=== PATIENT | male | born 1955 | race Caucasian/White ===

== ENCOUNTER 2017-01-28 09:27 | Emergency (ER) | payer MEDICAID ==
[~2017-01-28] VITALS: Ht 167.6 cm; Wt 80.0 kg
[2017-01-28] MEDS ORDERED: PROPARACAINE HCL 0.5% 15 ML OPHTHALMIC SOLUTION OU ONE (11:15)
[2017-01-28] MEDS ORDERED: KETOROLAC TROMETHAMINE 60 MG/2 ML VIAL IM ONE (11:45)
[2017-01-28] MEDS ORDERED: HYDROCODONE/ACETAMINOPHEN 10-325 MG TABLET PO ONE (11:45)
[2017-01-28 13:42] VITALS: BP 141/85
== END 2017-01-28 14:22 | disposition home or self-care (01) ==
LOC: EMS 09:28
DX: H57.12 Ocular pain, left eye (principal); K21.9 Gastro-esophageal reflux disease without esophagitis; F17.210 Nicotine dependence, cigarettes, uncomplicated
CPT/HCPCS: 96372; 99283; J1885

== ENCOUNTER 2017-03-10 17:50 | Inpatient (IN) | payer MEDICAID ==
[~2017-03-10] VITALS: Ht 167.6 cm; Wt 82.8 kg
[2017-03-10] MEDS ORDERED: BP MEDS PO (17:53)
[2017-03-10] MEDS ORDERED: MORPHINE SULFATE 10 MG/ML SYRINGE IVP ONE (19:00)
[2017-03-10] MEDS ORDERED: MAGNESIUM SULFATE 2 GM, MVI, ADULT NO.1 WITH VIT K 10 ML, THIAMINE HCL 100 MG, FOLIC AC... IV ONE ×5 (19:00)
[2017-03-10] MEDS ORDERED: PROCHLORPERAZINE EDISYLATE 5 MG/ML 2 ML VIAL IVP ONE (19:00)
[2017-03-10] MEDS ORDERED: PANTOPRAZOLE SODIUM 40 MG/VIAL IVP ONE (19:15)
[2017-03-10 19:26] LABS: BASOPHILS % (AUTO) 0.8 % (0.0-2.0); EOSINOPHILS % (AUTO) 0.2 % (1.0-6.0); HEMATOCRIT 43.7 % (41-53); HEMOGLOBIN 14.1 g/dL (13.5-17.5); LYMPHOCYTES # (AUTO) 5.2 K/uL (1.0-4.8); LYMPHOCYTES % (AUTO) 27.5 % (22.0-44.0); MEAN CORPUSCULAR HEMOGLOBIN 28.6 pg (26.0-34.0); MEAN CORPUSCULAR HGB CONC 32.2 G/dL (31.0-37.0); MEAN CORPUSCULAR VOLUME 89 fL (80-100); MONOCYTES # (AUTO) 1.6 K/uL (0.1-1.0); MONOCYTES % (AUTO) 8.5 % (2.0-9.0); PLATELET COUNT (AUTO) 283 K/uL (150-450); RED BLOOD CELL COUNT(AUTO) 4.91 MIL/uL (4.50-5.90); RED CELL DISTRIBUTION WIDTH 14.8 % (11.5-14.5)
[2017-03-10 19:40] LABS: ALANINE AMINOTRANSFERASE 28 U/L (12-78); ALBUMIN 3.7 g/dL (3.4-5.0); ANION GAP 11 mmol/L (8-16); ASPARTATE AMINOTRANSFERASE 28 U/L (15-37); BILIRUBIN,TOTAL 0.7 mg/dL (0.1-1.0); CALCIUM, TOTAL 8.7 mg/dL (8.8-10.5); CARBON DIOXIDE 22 mmol/L (22-29); CHLORIDE 96 mmol/L (98-107); CREATININE 0.85 mg/dL (0.60-1.30); GLOMERULAR FILTR. RATE CALC > 60 mL/min (>60); POTASSIUM 3.9 mmol/L (3.5-5.1); SODIUM SERUM 129 mmol/L (136-145); TOTAL PROTEIN, SERUM 8.2 g/dL (6.4-8.2)
[2017-03-10 19:50] LABS: UREA NITROGEN, BLOOD 6 mg/dL (7-18)
[2017-03-10 19:58] LABS: APPEARANCE,URINE CLEAR (CLEAR); GLUCOSE, URINE (UA) NEGATIVE (NEGATIVE); KETONES,URINE NEGATIVE (NEGATIVE); LEUKOCYTE ESTERASE ,URINE NEGATIVE (NEGATIVE); OCCULT BLOOD,URINE NEGATIVE (NEGATIVE); PROTEIN,URINE NEGATIVE (NEGATIVE)
[2017-03-10 20:17] LABS: RBC,URINE 0-2 /HPF (0-2); SQUAMOUS EPITHELIAL CELL,UR Rare /LPF (None Seen); WBC,URINE 0-2 /HPF (0-5)
[2017-03-10] MEDS ORDERED: IOVERSOL 350 MG/ML 100 ML VIAL ONE (21:07)
[2017-03-10] MEDS ORDERED: ONDANSETRON HCL 4 MG/2 ML VIAL IVP PRN (21:15)
[2017-03-10] MEDS ORDERED: ALBUTEROL SULFATE 2.5 MG/0.5 ML NEB SOLUTION NEB PRN (21:15)
[2017-03-10] MEDS ORDERED: ACETAMINOPHEN 325 MG TABLET PO PRN (21:15)
[2017-03-10] MEDS ORDERED: MAGNESIUM HYDROXIDE SUSPENSION 30 ML UDCUP PO PRN (21:15)
[2017-03-10] MEDS ORDERED: OxyCODONE HCL/ACETAMINOPHEN 5-325 MG TABLET PO PRN (21:15)
[2017-03-10] MEDS ORDERED: MAGNESIUM SULFATE 2 GM in DEXTROSE 5%-WATER 50 ML IV PRN (21:30)
[2017-03-10] MEDS ORDERED: MAGNESIUM SULFATE 4 GM/WATER 100 ML IV PRN (21:30)
[2017-03-10] MEDS ORDERED: SODIUM CHLORIDE 0.9% 1,000 ML IV ONE (21:30)
[2017-03-10] MEDS ORDERED: MAGNESIUM OXIDE 400 MG TABLET PO PRN (21:30)
[2017-03-10] MEDS ORDERED: POTASSIUM CHLORIDE 20 MEQ ER TABLET PO PRN (21:30)
[2017-03-10] MEDS ORDERED: POTASSIUM CHL 10 MEQ/WATER 50 ML IV PRN (21:30)
[2017-03-10] MEDS: MORPHINE SULFATE 2 MG/ML SYRINGE IVP PRN (23:54)
[2017-03-11] VITALS (7 sets, daily range): BP systolic 105–118; BP diastolic 59–88
[2017-03-11] MEDS: MORPHINE SULFATE 2 MG/ML SYRINGE IVP PRN ×5 (04:23→22:26)
[2017-03-11 06:06] LABS: BASOPHILS % (AUTO) 0.3 % (0.0-2.0); EOSINOPHILS % (AUTO) 0.8 % (1.0-6.0); HEMATOCRIT 37.7 % (41-53); HEMOGLOBIN 12.1 g/dL (13.5-17.5); LYMPHOCYTES # (AUTO) 3.4 K/uL (1.0-4.8); LYMPHOCYTES % (AUTO) 34.3 % (22.0-44.0); MEAN CORPUSCULAR HEMOGLOBIN 29.1 pg (26.0-34.0); MEAN CORPUSCULAR HGB CONC 32.1 G/dL (31.0-37.0); MEAN CORPUSCULAR VOLUME 91 fL (80-100); MONOCYTES # (AUTO) 1.2 K/uL (0.1-1.0); MONOCYTES % (AUTO) 11.9 % (2.0-9.0); NEUTROPHILS # (AUTO) 5.2 K/uL (1.8-7.7); NEUTROPHILS % (AUTO) 52.7 % (40.0-70.0); PLATELET COUNT (AUTO) 232 K/uL (150-450); RED BLOOD CELL COUNT(AUTO) 4.15 MIL/uL (4.50-5.90); RED CELL DISTRIBUTION WIDTH 14.7 % (11.5-14.5); WHITE BLOOD COUNT (AUTO) 9.9 K/uL (4.5-11.0)
[2017-03-11 06:29] LABS: ALANINE AMINOTRANSFERASE 25 U/L (12-78); ALBUMIN 2.9 g/dL (3.4-5.0); ANION GAP 7 mmol/L (8-16); ASPARTATE AMINOTRANSFERASE 21 U/L (15-37); BILIRUBIN,TOTAL 0.8 mg/dL (0.1-1.0); CALCIUM, TOTAL 7.9 mg/dL (8.8-10.5); CARBON DIOXIDE 24 mmol/L (22-29); CHLORIDE 101 mmol/L (98-107); CREATININE 0.79 mg/dL (0.60-1.30); GLOMERULAR FILTR. RATE CALC > 60 mL/min (>60); POTASSIUM 3.7 mmol/L (3.5-5.1); SODIUM SERUM 132 mmol/L (136-145); TOTAL PROTEIN, SERUM 6.7 g/dL (6.4-8.2); UREA NITROGEN, BLOOD 8 mg/dL (7-18)
[2017-03-11] MEDS ORDERED: SODIUM CHLORIDE 0.9% 1,000 ML IV ONE (08:15)
[2017-03-11] MEDS: PANTOPRAZOLE SODIUM 40 MG/VIAL IVP SCH (08:30)
[2017-03-11] MEDS: DOCUSATE SODIUM 100 MG CAPSULE PO SCH ×2 (08:30→21:00)
[2017-03-11] MEDS: MULTIVITAMINS WITH MINERALS, THERAPEUTIC TABLET PO SCH (08:34)
[2017-03-11] MEDS: LORazepam 2 MG/ML VIAL IVP PRN ×2 (18:23→22:25)
[2017-03-11] MEDS ORDERED: 0.9% SODIUM CHLORIDE 10 ML SYRINGE IVP PRN (19:15)
[2017-03-12] MEDS: LORazepam 2 MG/ML VIAL IVP PRN ×2 (03:36→07:47)
[2017-03-12] MEDS: MORPHINE SULFATE 2 MG/ML SYRINGE IVP PRN ×2 (03:36→07:47)
[2017-03-12 04:53] VITALS: BP 122/85
[2017-03-12] MEDS: PANTOPRAZOLE SODIUM 40 MG/VIAL IVP SCH (07:46)
[2017-03-12] MEDS: DOCUSATE SODIUM 100 MG CAPSULE PO SCH (07:46)
[2017-03-12] MEDS: MULTIVITAMINS WITH MINERALS, THERAPEUTIC TABLET PO SCH (07:46)
[2017-03-12 07:48] VITALS: BP 109/64
[2017-03-12 11:35] VITALS: BP 125/86
== END 2017-03-12 15:20 | disposition home or self-care (01) | DRG 282 ==
LOC: EMS 17:52 → 6N 22:20
PROVIDERS: ADMIT Internal Medicine; ATTEND Internal Medicine
DX: K85.90 Acute pancreatitis without necrosis or infection, unspecified (principal); E87.1 Hypo-osmolality and hyponatremia; K86.1 Other chronic pancreatitis; F10.20 Alcohol dependence, uncomplicated; K21.9 Gastro-esophageal reflux disease without esophagitis; K86.3 Pseudocyst of pancreas; G89.29 Other chronic pain; D72.829 Elevated white blood cell count, unspecified; F17.210 Nicotine dependence, cigarettes, uncomplicated; Z71.6 Tobacco abuse counseling; Z91.19 Patient's noncompliance with other medical treatment and regimen; Z82.5 Family history of asthma and other chronic lower respiratory diseases; Z59.0 Homelessness; Z79.899 Other long term (current) drug therapy
CPT/HCPCS: 74177; 83735; 96365; 96366; 96375; 99285; C9113; G0480; J0780; J2060; J2270; J3411; J3475; J3490; J7030

== ENCOUNTER 2017-03-14 17:54 | Emergency (ER) | payer MEDICAID ==
[~2017-03-14] VITALS: Ht 167.6 cm; Wt 79.5 kg
[2017-03-14 19:23] LABS: BASOPHILS % (AUTO) 0.6 % (0.0-2.0); EOSINOPHILS % (AUTO) 2.3 % (1.0-6.0); HEMATOCRIT 43.9 % (41-53); HEMOGLOBIN 14.4 g/dL (13.5-17.5); LYMPHOCYTES # (AUTO) 4.8 K/uL (1.0-4.8); MEAN CORPUSCULAR HEMOGLOBIN 29.8 pg (26.0-34.0); MEAN CORPUSCULAR HGB CONC 32.8 G/dL (31.0-37.0); MEAN CORPUSCULAR VOLUME 91 fL (80-100); MONOCYTES % (AUTO) 9.4 % (2.0-9.0); NEUTROPHILS # (AUTO) 4.8 K/uL (1.8-7.7); NEUTROPHILS % (AUTO) 43.7 % (40.0-70.0); PLATELET COUNT (AUTO) 318 K/uL (150-450); RED BLOOD CELL COUNT(AUTO) 4.83 MIL/uL (4.50-5.90); RED CELL DISTRIBUTION WIDTH 14.8 % (11.5-14.5); WHITE BLOOD COUNT (AUTO) 10.9 K/uL (4.5-11.0)
[2017-03-14 19:39] LABS: ANION GAP 10 mmol/L (8-16); CALCIUM, TOTAL 9.1 mg/dL (8.8-10.5); CARBON DIOXIDE 24 mmol/L (22-29); CHLORIDE 101 mmol/L (98-107); CREATININE 0.76 mg/dL (0.60-1.30); GLOMERULAR FILTR. RATE CALC > 60 mL/min (>60); POTASSIUM 3.7 mmol/L (3.5-5.1); SODIUM SERUM 135 mmol/L (136-145); UREA NITROGEN, BLOOD 7 mg/dL (7-18)
[2017-03-14 19:45] LABS: ALANINE AMINOTRANSFERASE 29 U/L (12-78); ALBUMIN 3.3 g/dL (3.4-5.0); ASPARTATE AMINOTRANSFERASE 31 U/L (15-37); BILIRUBIN,TOTAL 0.2 mg/dL (0.1-1.0); TOTAL PROTEIN, SERUM 8.3 g/dL (6.4-8.2)
[2017-03-14] MEDS ORDERED: ONDANSETRON HCL 4 MG/2 ML VIAL IVP ONE (20:45)
[2017-03-14] MEDS ORDERED: LORazepam 2 MG/ML VIAL IVP ONE ×2 (20:45→21:45)
[2017-03-14] MEDS ORDERED: SODIUM CHLORIDE 0.9% 1,000 ML IV ONE (20:45)
[2017-03-14] MEDS ORDERED: HYDROmorphone 2 MG/ML SYRINGE IVP ONE ×2 (20:45→21:45)
[2017-03-14 20:51] LABS: ADD UA MICROSCOPIC NO; APPEARANCE,URINE CLEAR (CLEAR); GLUCOSE, URINE (UA) NEGATIVE (NEGATIVE); KETONES,URINE NEGATIVE (NEGATIVE); LEUKOCYTE ESTERASE ,URINE NEGATIVE (NEGATIVE); OCCULT BLOOD,URINE NEGATIVE (NEGATIVE); PROTEIN,URINE NEGATIVE (NEGATIVE)
[2017-03-14 22:36] VITALS: BP 126/86
== END 2017-03-14 22:38 | disposition home or self-care (01) ==
LOC: EMS 17:55
DX: R10.13 Epigastric pain (principal); F10.20 Alcohol dependence, uncomplicated; K21.9 Gastro-esophageal reflux disease without esophagitis; F17.210 Nicotine dependence, cigarettes, uncomplicated; F12.90 Cannabis use, unspecified, uncomplicated; Y90.1 Blood alcohol level of 20-39 mg/100 ml
CPT/HCPCS: 36415; 80053; 80307; 81003; 83690; 84484; 85025; 93005; 96361; 96374; 96375; 96376; 99285; G0480; J1170; J2060; J2405; J7030

== ENCOUNTER 2017-05-06 22:09 | Emergency (ER) | payer MEDICAID ==
[~2017-05-06] VITALS: Ht 167.6 cm; Wt 81.8 kg
[2017-05-06] MEDS ORDERED: AMIT10TA6 PO (22:21)
[2017-05-06 22:43] LABS: EOSINOPHILS % (AUTO) 1.3 % (1.0-6.0); HEMATOCRIT 40.8 % (41-53); HEMOGLOBIN 13.9 g/dL (13.5-17.5); LYMPHOCYTES # (AUTO) 5.3 K/uL (1.0-4.8); LYMPHOCYTES % (AUTO) 51.2 % (22.0-44.0); MEAN CORPUSCULAR VOLUME 88 fL (80-100); MONOCYTES # (AUTO) 1.1 K/uL (0.1-1.0); MONOCYTES % (AUTO) 10.8 % (2.0-9.0); NEUTROPHILS # (AUTO) 3.7 K/uL (1.8-7.7); NEUTROPHILS % (AUTO) 35.7 % (40.0-70.0); PLATELET COUNT (AUTO) 378 K/uL (150-450); RED BLOOD CELL COUNT(AUTO) 4.62 MIL/uL (4.50-5.90); RED CELL DISTRIBUTION WIDTH 15.8 % (11.5-14.5); WHITE BLOOD COUNT (AUTO) 10.3 K/uL (4.5-11.0)
[2017-05-06 22:53] LABS: ANION GAP 11 mmol/L (8-16); CALCIUM, TOTAL 8.6 mg/dL (8.8-10.5); CARBON DIOXIDE 26 mmol/L (22-29); CHLORIDE 101 mmol/L (98-107); GLOMERULAR FILTR. RATE CALC > 60 mL/min (>60); POTASSIUM 3.6 mmol/L (3.5-5.1); SODIUM SERUM 138 mmol/L (136-145); UREA NITROGEN, BLOOD 2 mg/dL (7-18)
[2017-05-06 23:01] LABS: ALANINE AMINOTRANSFERASE 25 U/L (12-78); ASPARTATE AMINOTRANSFERASE 35 U/L (15-37); BILIRUBIN,TOTAL 0.2 mg/dL (0.1-1.0); TOTAL PROTEIN, SERUM 7.9 g/dL (6.4-8.2)
[2017-05-06] MEDS ORDERED: ONDANSETRON HCL 4 MG/2 ML VIAL IVP ONE (23:15)
[2017-05-06 23:53] LABS: APPEARANCE,URINE CLEAR (CLEAR); GLUCOSE, URINE (UA) NEGATIVE (NEGATIVE); KETONES,URINE NEGATIVE (NEGATIVE); LEUKOCYTE ESTERASE ,URINE NEGATIVE (NEGATIVE); OCCULT BLOOD,URINE NEGATIVE (NEGATIVE); PROTEIN,URINE NEGATIVE (NEGATIVE)
[2017-05-06 23:57] LABS: ADD UA MICROSCOPIC NO
[2017-05-07] MEDS ORDERED: SODIUM CHLORIDE 0.9% 1,000 ML IV ONE (02:15)
[2017-05-07 03:27] VITALS: BP 110/65
== END 2017-05-07 03:38 | disposition home or self-care (01) ==
LOC: EMS 22:12
DX: F10.229 Alcohol dependence with intoxication, unspecified (principal); R10.84 Generalized abdominal pain; F17.210 Nicotine dependence, cigarettes, uncomplicated; K21.9 Gastro-esophageal reflux disease without esophagitis; G89.29 Other chronic pain; B19.20 Unspecified viral hepatitis C without hepatic coma; F12.10 Cannabis abuse, uncomplicated
CPT/HCPCS: 36415; 80053; 80307; 81003; 83690; 84484; 85025; 93005; 96361; 96374; 99285; 99406; G0480; J2405; J7030

== ENCOUNTER 2017-09-23 08:31 | Inpatient (IN) | payer MEDICAID ==
[~2017-09-23] VITALS: Ht 167.6 cm; Wt 81.8 kg
[~2017-09-23 08:31] MED LIST: AMIT10TA6 PO
[2017-09-23 09:11] LABS: BASOPHILS % (AUTO) 0.4 % (0.0-2.0); EOSINOPHILS % (AUTO) 0.7 % (1.0-6.0); HEMATOCRIT 40.7 % (41-53); HEMOGLOBIN 13.4 g/dL (13.5-17.5); LYMPHOCYTES # (AUTO) 3.9 K/uL (1.0-4.8); LYMPHOCYTES % (AUTO) 36.3 % (22.0-44.0); MEAN CORPUSCULAR HEMOGLOBIN 27.4 pg (26.0-34.0); MEAN CORPUSCULAR VOLUME 83 fL (80-100); MONOCYTES % (AUTO) 9.3 % (2.0-9.0); NEUTROPHILS # (AUTO) 5.7 K/uL (1.8-7.7); NEUTROPHILS % (AUTO) 53.3 % (40.0-70.0); PLATELET COUNT (AUTO) 351 K/uL (150-450); RED CELL DISTRIBUTION WIDTH 19.4 % (11.5-14.5)
[2017-09-23 09:23] LABS: ANION GAP 12 mmol/L (8-16); CALCIUM, TOTAL 9.3 mg/dL (8.8-10.5); CARBON DIOXIDE 23 mmol/L (22-29); CHLORIDE 98 mmol/L (98-107); CREATININE 0.86 mg/dL (0.60-1.30); GLOMERULAR FILTR. RATE CALC > 60 mL/min (>60); GLUCOSE,RANDOM 129 mg/dL (70-110); SODIUM SERUM 133 mmol/L (136-145); UREA NITROGEN, BLOOD 15 mg/dL (7-18)
[2017-09-23 09:32] LABS: ALANINE AMINOTRANSFERASE 19 U/L (12-78); ALBUMIN 3.9 g/dL (3.4-5.0); ALKALINE PHOSPHATASE 150 U/L (46-116); ASPARTATE AMINOTRANSFERASE 28 U/L (15-37); BILIRUBIN,TOTAL 0.3 mg/dL (0.1-1.0); LIPASE 605 U/L (73-393)
[2017-09-23] MEDS ORDERED: OxyCODONE HCL/ACETAMINOPHEN 5-325 MG TABLET PO ONE (10:30)
[2017-09-23] MEDS ORDERED: SODIUM CHLORIDE 0.9% 1,000 ML IV ONE (10:30)
[2017-09-23] MEDS ORDERED: ONDANSETRON HCL 4 MG/2 ML VIAL IVP ONE ×2 (10:30→14:45)
[2017-09-23] MEDS ORDERED: HYDROmorphone 2 MG/ML SYRINGE IVP ONE ×2 (11:45→14:45)
[2017-09-23] MEDS ORDERED: MORPHINE SULFATE 4 MG/ML SYRINGE IVP ONE ×2 (12:15→16:30)
[2017-09-23] MEDS ORDERED: ONDANSETRON HCL 4 MG/2 ML VIAL IVP PRN (13:00)
[2017-09-23] MEDS ORDERED: ACETAMINOPHEN 325 MG TABLET PO PRN (13:00)
[2017-09-23] MEDS ORDERED: 0.9% SODIUM CHLORIDE 10 ML SYRINGE IVP PRN (13:00)
[2017-09-23] MEDS ORDERED: HydrALAZINE HCL 20 MG/ML VIAL IVP ONE ×2 (15:00→16:30)
[2017-09-23 15:10] LABS: APPEARANCE,URINE CLEAR (CLEAR); BILIRUBIN,URINE NEGATIVE (NEGATIVE); GLUCOSE, URINE (UA) 100 mg/dL (NEGATIVE); KETONES,URINE 15 mg/dL (NEGATIVE); LEUKOCYTE ESTERASE ,URINE NEGATIVE (NEGATIVE); NITRATE,URINE NEGATIVE (NEGATIVE); OCCULT BLOOD,URINE SMALL (NEGATIVE); PH,URINE 6.5 (5.0-8.0); PROTEIN,URINE TRACE (NEGATIVE); UROBILINOGEN,URINE 0.2 mg/dL (<=1.0)
[2017-09-23 15:30] LABS: BACTERIA,URINE None Seen /HPF (None Seen); RBC,URINE 0-2 /HPF (0-2); SQUAMOUS EPITHELIAL CELL,UR Few /LPF (None Seen); WBC,URINE None Seen /HPF (0-5)
[2017-09-23] MEDS ORDERED: KETOROLAC TROMETHAMINE 30 MG/ML VIAL IVP ONE (16:30)
[2017-09-23] MEDS: HYDROmorphone 2 MG/ML SYRINGE IVP PRN ×2 (18:06→22:08)
[2017-09-23] MEDS ORDERED: MAGNESIUM SULFATE 2 GM, MVI, ADULT NO.1 WITH VIT K 10 ML, THIAMINE HCL 100 MG, FOLIC AC... IV ONE ×5 (20:00)
[2017-09-23 20:08] VITALS: BP 142/81
[2017-09-23] MEDS ORDERED: LORazepam 2 MG/ML VIAL IM PRN (20:15)
[2017-09-23] MEDS: ChlordiazePOXIDE HCL 25 MG CAPSULE PO SCH (20:51)
[2017-09-23] MEDS: MORPHINE SULFATE 2 MG/ML SYRINGE IVP PRN (20:51)
[2017-09-23] MEDS: PANTOPRAZOLE SODIUM 40 MG/VIAL IVP SCH (22:04)
[2017-09-24] VITALS (8 sets, daily range): BP systolic 154–191; BP diastolic 82–121
[2017-09-24] MEDS: MORPHINE SULFATE 2 MG/ML SYRINGE IVP PRN ×5 (01:10→20:03)
[2017-09-24] MEDS: HYDROmorphone 2 MG/ML SYRINGE IVP PRN ×6 (02:02→17:21)
[2017-09-24] MEDS: LORazepam 2 MG/ML VIAL IVP PRN ×2 (03:48→21:04)
[2017-09-24] MEDS ORDERED: BARIUM SULFATE 0.1% SUSPENSION 450 ML BOTTLE ONE ×2 (04:05)
[2017-09-24] MEDS: DEXTROSE 5%-0.45% SODIUM CHL 1,000 ML IV SCH ×3 (04:59→20:04)
[2017-09-24 05:45] LABS: BASOPHILS % (AUTO) 0.3 % (0.0-2.0); EOSINOPHILS % (AUTO) 0.4 % (1.0-6.0); HEMATOCRIT 40.3 % (41-53); HEMOGLOBIN 13.3 g/dL (13.5-17.5); LYMPHOCYTES # (AUTO) 1.9 K/uL (1.0-4.8); LYMPHOCYTES % (AUTO) 19.3 % (22.0-44.0); MEAN CORPUSCULAR HEMOGLOBIN 27.4 pg (26.0-34.0); MEAN CORPUSCULAR HGB CONC 32.9 G/dL (31.0-37.0); MEAN CORPUSCULAR VOLUME 83 fL (80-100); MONOCYTES % (AUTO) 10.2 % (2.0-9.0); NEUTROPHILS # (AUTO) 6.8 K/uL (1.8-7.7); NEUTROPHILS % (AUTO) 69.8 % (40.0-70.0); PLATELET COUNT (AUTO) 307 K/uL (150-450); RED BLOOD CELL COUNT(AUTO) 4.86 MIL/uL (4.50-5.90)
[2017-09-24 06:04] LABS: ALANINE AMINOTRANSFERASE 19 U/L (12-78); ALBUMIN 3.7 g/dL (3.4-5.0); ALKALINE PHOSPHATASE 140 U/L (46-116); AMYLASE 98 U/L (25-115); ANION GAP 10 mmol/L (8-16); ASPARTATE AMINOTRANSFERASE 25 U/L (15-37); BILIRUBIN,TOTAL 0.4 mg/dL (0.1-1.0); CARBON DIOXIDE 24 mmol/L (22-29); CHLORIDE 96 mmol/L (98-107); CREATININE 0.68 mg/dL (0.60-1.30); GLOMERULAR FILTR. RATE CALC > 60 mL/min (>60); GLUCOSE,RANDOM 120 mg/dL (70-110); LIPASE 541 U/L (73-393); POTASSIUM 3.9 mmol/L (3.5-5.1); SODIUM SERUM 130 mmol/L (136-145); TOTAL PROTEIN, SERUM 8.6 g/dL (6.4-8.2); UREA NITROGEN, BLOOD 11 mg/dL (7-18)
[2017-09-24] MEDS ORDERED: IOVERSOL 350 MG/ML 150 ML VIAL ONE (07:44)
[2017-09-24] MEDS: ChlordiazePOXIDE HCL 25 MG CAPSULE PO SCH ×4 (08:04→20:03)
[2017-09-24] MEDS: PANTOPRAZOLE SODIUM 40 MG/VIAL IVP SCH ×2 (08:07→20:03)
[2017-09-24] MEDS: HydrALAZINE HCL 10 MG TABLET PO PRN ×3 (08:33→21:04)
[2017-09-25 00:14] VITALS: BP 160/95
[2017-09-25] MEDS: MORPHINE SULFATE 2 MG/ML SYRINGE IVP PRN (01:19)
[2017-09-25 06:00] VITALS: BP 156/101
[2017-09-25] MEDS: DEXTROSE 5%-0.45% SODIUM CHL 1,000 ML IV SCH ×3 (06:27→23:21)
[2017-09-25] MEDS: MORPHINE SULFATE 2 MG/ML SYRINGE IM PRN ×2 (07:12→12:08)
[2017-09-25 07:58] VITALS: BP 123/82
[2017-09-25] MEDS: ChlordiazePOXIDE HCL 25 MG CAPSULE PO SCH ×3 (08:13→20:33)
[2017-09-25] MEDS: PANTOPRAZOLE SODIUM 40 MG/VIAL IVP SCH ×3 (08:13→20:32)
[2017-09-25] MEDS ORDERED: MORPHINE SULFATE 2 MG/ML SYRINGE IM PRN (08:15)
[2017-09-25 09:22] LABS: INR 1.1 (0.9-1.1); PROTHROMBIN TIME 11.1 SEC (9.4-11.6)
[2017-09-25 16:22] VITALS: BP 154/88
[2017-09-25] MEDS: HYDROmorphone 2 MG/ML SYRINGE IVP PRN (16:42)
[2017-09-25 20:37] VITALS: BP 118/89
[2017-09-26 06:00] VITALS: BP 123/79
[2017-09-26] MEDS: DEXTROSE 5%-0.45% SODIUM CHL 1,000 ML IV SCH (06:01)
[2017-09-26] MEDS: HYDROmorphone 2 MG/ML SYRINGE IVP PRN ×5 (06:02→21:35)
[2017-09-26 07:28] VITALS: BP 108/70
[2017-09-26] MEDS: ChlordiazePOXIDE HCL 25 MG CAPSULE PO SCH ×2 (07:53→20:19)
[2017-09-26] MEDS: PANTOPRAZOLE SODIUM 40 MG/VIAL IVP SCH ×2 (07:53→20:19)
[2017-09-26 08:17] LABS: BASOPHILS % (AUTO) 0.8 % (0.0-2.0); EOSINOPHILS % (AUTO) 0.3 % (1.0-6.0); HEMATOCRIT 36.6 % (41-53); HEMOGLOBIN 12.1 g/dL (13.5-17.5); LYMPHOCYTES # (AUTO) 2.7 K/uL (1.0-4.8); LYMPHOCYTES % (AUTO) 33.1 % (22.0-44.0); MEAN CORPUSCULAR HEMOGLOBIN 27.4 pg (26.0-34.0); MEAN CORPUSCULAR VOLUME 83 fL (80-100); MONOCYTES % (AUTO) 11.9 % (2.0-9.0); NEUTROPHILS # (AUTO) 4.4 K/uL (1.8-7.7); NEUTROPHILS % (AUTO) 53.9 % (40.0-70.0); PLATELET COUNT (AUTO) 265 K/uL (150-450); RED BLOOD CELL COUNT(AUTO) 4.41 MIL/uL (4.50-5.90); RED CELL DISTRIBUTION WIDTH 18.6 % (11.5-14.5)
[2017-09-26 08:22] LABS: ANION GAP 7 mmol/L (8-16); CALCIUM, TOTAL 8.8 mg/dL (8.8-10.5); CARBON DIOXIDE 29 mmol/L (22-29); CHLORIDE 94 mmol/L (98-107); CREATININE 0.88 mg/dL (0.60-1.30); GLOMERULAR FILTR. RATE CALC > 60 mL/min (>60); GLUCOSE,RANDOM 155 mg/dL (70-110); POTASSIUM 3.8 mmol/L (3.5-5.1); SODIUM SERUM 130 mmol/L (136-145); UREA NITROGEN, BLOOD 9 mg/dL (7-18)
[2017-09-26 11:25] VITALS: BP 108/66
[2017-09-26] MEDS: MORPHINE SULFATE 2 MG/ML SYRINGE IVP PRN ×2 (14:30→20:19)
[2017-09-26 15:22] VITALS: BP 106/75
[2017-09-26 19:21] VITALS: BP 101/69
[2017-09-26 23:27] VITALS: BP 102/72
[2017-09-27 05:13] VITALS: BP 110/80
[2017-09-27 07:34] VITALS: BP 122/77
[2017-09-27] MEDS: HYDROmorphone 2 MG/ML SYRINGE IVP PRN ×3 (08:39→19:00)
[2017-09-27] MEDS: PANTOPRAZOLE SODIUM 40 MG/VIAL IVP SCH ×2 (08:39→20:00)
[2017-09-27] MEDS: ChlordiazePOXIDE HCL 25 MG CAPSULE PO SCH ×2 (08:39→20:00)
[2017-09-27] MEDS: MORPHINE SULFATE 2 MG/ML SYRINGE IVP PRN ×3 (10:06→20:01)
[2017-09-27 11:34] VITALS: BP 135/87
[2017-09-27 15:28] VITALS: BP 123/76
[2017-09-27 20:08] VITALS: BP 111/80
[2017-09-27 23:52] VITALS: BP 101/68
[2017-09-28] MEDS: HYDROmorphone 2 MG/ML SYRINGE IVP PRN ×2 (01:02→18:08)
[2017-09-28 04:30] VITALS: BP 112/74
[2017-09-28 07:59] VITALS: BP 108/66
[2017-09-28] MEDS: PANTOPRAZOLE SODIUM 40 MG/VIAL IVP SCH ×2 (08:56→21:11)
[2017-09-28] MEDS: ChlordiazePOXIDE HCL 25 MG CAPSULE PO SCH ×2 (08:57→21:12)
[2017-09-28] MEDS: MORPHINE SULFATE 2 MG/ML SYRINGE IVP PRN ×3 (10:13→21:12)
[2017-09-28 12:44] VITALS: BP 112/71
[2017-09-28 16:02] VITALS: BP 148/90
[2017-09-28] MEDS: LORazepam 2 MG/ML VIAL IVP PRN (18:19)
[2017-09-28 19:33] VITALS: BP 121/85
[2017-09-29] VITALS (7 sets, daily range): BP systolic 111–141; BP diastolic 72–89
[2017-09-29] MEDS: ChlordiazePOXIDE HCL 25 MG CAPSULE PO SCH ×2 (08:31→20:16)
[2017-09-29] MEDS: PANTOPRAZOLE SODIUM 40 MG/VIAL IVP SCH ×2 (08:31→20:16)
[2017-09-29] MEDS: HYDROmorphone 2 MG/ML SYRINGE IVP PRN ×4 (08:31→23:09)
[2017-09-29] MEDS: MORPHINE SULFATE 2 MG/ML SYRINGE IVP PRN (12:37)
[2017-09-30 05:01] VITALS: BP 131/76
[2017-09-30] MEDS: HYDROmorphone 2 MG/ML SYRINGE IVP PRN ×4 (05:12→20:18)
[2017-09-30 07:17] VITALS: BP 117/85
[2017-09-30] MEDS: ChlordiazePOXIDE HCL 25 MG CAPSULE PO SCH ×2 (08:42→20:18)
[2017-09-30] MEDS: PANTOPRAZOLE SODIUM 40 MG/VIAL IVP SCH ×2 (08:42→20:19)
[2017-09-30 11:39] VITALS: BP 111/75
[2017-09-30 15:49] VITALS: BP 138/87
[2017-09-30] MEDS: MORPHINE SULFATE 2 MG/ML SYRINGE IVP PRN ×2 (17:34→23:47)
[2017-09-30 19:30] VITALS: BP 107/66
[2017-09-30 23:30] VITALS: BP 101/63
[2017-10-01 04:49] VITALS: BP 121/73
[2017-10-01] MEDS: HYDROmorphone 2 MG/ML SYRINGE IVP PRN ×4 (06:49→21:43)
[2017-10-01 07:45] VITALS: BP 112/75
[2017-10-01] MEDS: ChlordiazePOXIDE HCL 25 MG CAPSULE PO SCH ×2 (09:14→19:45)
[2017-10-01] MEDS: PANTOPRAZOLE SODIUM 40 MG/VIAL IVP SCH ×2 (09:15→19:45)
[2017-10-01] MEDS: MORPHINE SULFATE 2 MG/ML SYRINGE IVP PRN ×4 (09:20→23:45)
[2017-10-01 11:34] VITALS: BP 132/88
[2017-10-01] MEDS ORDERED: BARIUM SULFATE 0.1% SUSPENSION 450 ML BOTTLE ONE (13:32)
[2017-10-01] MEDS ORDERED: IOVERSOL 350 MG/ML 100 ML VIAL ONE (13:32)
[2017-10-01 15:12] VITALS: BP 117/71
[2017-10-01 20:23] VITALS: BP 114/78
[2017-10-02] VITALS (8 sets, daily range): BP systolic 106–138; BP diastolic 60–99
[2017-10-02] MEDS: HYDROmorphone 2 MG/ML SYRINGE IVP PRN ×7 (00:46→22:44)
[2017-10-02 06:27] LABS: BASOPHILS # (AUTO) 0.03 K/uL (0.00-0.20); BASOPHILS % (AUTO) 0.4 % (0.0-2.0); EOSINOPHILS # (AUTO) 0.18 K/uL (0.00-0.70); HEMATOCRIT 36.2 % (41-53); HEMOGLOBIN 11.4 g/dL (13.5-17.5); LYMPHOCYTES # (AUTO) 2.2 K/uL (1.0-4.8); LYMPHOCYTES % (AUTO) 31.3 % (22.0-44.0); MEAN CORPUSCULAR HEMOGLOBIN 26.8 pg (26.0-34.0); MEAN CORPUSCULAR HGB CONC 31.6 G/dL (31.0-37.0); MEAN CORPUSCULAR VOLUME 85 fL (80-100); MONOCYTES # (AUTO) 0.6 K/uL (0.1-1.0); MONOCYTES % (AUTO) 8.3 % (2.0-9.0); NEUTROPHILS # (AUTO) 3.9 K/uL (1.8-7.7); NEUTROPHILS % (AUTO) 57.4 % (40.0-70.0); PLATELET COUNT (AUTO) 367 K/uL (150-450); RED BLOOD CELL COUNT(AUTO) 4.27 MIL/uL (4.50-5.90); RED CELL DISTRIBUTION WIDTH 17.9 % (11.5-14.5)
[2017-10-02] MEDS: MORPHINE SULFATE 2 MG/ML SYRINGE IVP PRN (06:33)
[2017-10-02 06:50] LABS: ANION GAP 6 mmol/L (8-16); CALCIUM, TOTAL 9.2 mg/dL (8.8-10.5); CARBON DIOXIDE 29 mmol/L (22-29); CHLORIDE 99 mmol/L (98-107); GLOMERULAR FILTR. RATE CALC > 60 mL/min (>60); GLUCOSE,RANDOM 150 mg/dL (70-110); SODIUM SERUM 134 mmol/L (136-145); UREA NITROGEN, BLOOD 10 mg/dL (7-18)
[2017-10-02] MEDS: PANTOPRAZOLE SODIUM 40 MG/VIAL IVP SCH ×2 (08:36→19:49)
[2017-10-02] MEDS: ChlordiazePOXIDE HCL 25 MG CAPSULE PO SCH ×2 (08:36→19:48)
[2017-10-02] MEDS ORDERED: PANT40TA25 PO (10:50)
[2017-10-02] MEDS: ACETAMINOPHEN 325 MG TABLET PO PRN ×2 (16:57→19:48)
[2017-10-02 18:50] LABS: BASOPHILS % (AUTO) 0.3 % (0.0-2.0); EOSINOPHILS % (AUTO) 1.1 % (1.0-6.0); HEMATOCRIT 32.5 % (41-53); HEMOGLOBIN 10.9 g/dL (13.5-17.5); LYMPHOCYTES # (AUTO) 0.7 K/uL (1.0-4.8); LYMPHOCYTES % (AUTO) 10.4 % (22.0-44.0); MEAN CORPUSCULAR HEMOGLOBIN 27.6 pg (26.0-34.0); MEAN CORPUSCULAR HGB CONC 33.5 G/dL (31.0-37.0); MEAN CORPUSCULAR VOLUME 82 fL (80-100); MONOCYTES # (AUTO) 0.3 K/uL (0.1-1.0); MONOCYTES % (AUTO) 4.8 % (2.0-9.0); NEUTROPHILS # (AUTO) 5.8 K/uL (1.8-7.7); NEUTROPHILS % (AUTO) 83.4 % (40.0-70.0); PLATELET COUNT (AUTO) 365 K/uL (150-450); RED BLOOD CELL COUNT(AUTO) 3.95 MIL/uL (4.50-5.90); RED CELL DISTRIBUTION WIDTH 17.9 % (11.5-14.5)
[2017-10-02 19:00] LABS: ANION GAP 7 mmol/L (8-16); CALCIUM, TOTAL 8.6 mg/dL (8.8-10.5); CARBON DIOXIDE 26 mmol/L (22-29); CHLORIDE 100 mmol/L (98-107); CREATININE 1.02 mg/dL (0.60-1.30); GLOMERULAR FILTR. RATE CALC > 60 mL/min (>60); GLUCOSE,RANDOM 121 mg/dL (70-110); POTASSIUM 3.9 mmol/L (3.5-5.1); SODIUM SERUM 133 mmol/L (136-145); UREA NITROGEN, BLOOD 14 mg/dL (7-18)
[2017-10-02 19:05] LABS: PLATELET MORPHOLOGY COMMENT GIANT PLTS PRESENT
[2017-10-02] MEDS ORDERED: MAGNESIUM SULFATE 2 GM in DEXTROSE 5%-WATER 50 ML IV PRN (21:15)
[2017-10-02] MEDS ORDERED: MAGNESIUM SULFATE 4 GM/WATER 100 ML IV PRN (21:15)
[2017-10-02] MEDS ORDERED: MAGNESIUM OXIDE 400 MG TABLET PO PRN (21:15)
[2017-10-02 21:37] LABS: ALBUMIN 3.1 g/dL (3.4-5.0)
[2017-10-02] MEDS: CefTRIAXone 1 GM/DEXTROSE 50 ML IV SCH (21:47)
[2017-10-03 00:07] LABS: APPEARANCE,URINE CLEAR (CLEAR); BILIRUBIN,URINE NEGATIVE (NEGATIVE); GLUCOSE, URINE (UA) NEGATIVE (NEGATIVE); KETONES,URINE NEGATIVE (NEGATIVE); LEUKOCYTE ESTERASE ,URINE NEGATIVE (NEGATIVE); NITRATE,URINE NEGATIVE (NEGATIVE); OCCULT BLOOD,URINE NEGATIVE (NEGATIVE); PH,URINE 7.5 (5.0-8.0); PROTEIN,URINE NEGATIVE (NEGATIVE); UROBILINOGEN,URINE 0.2 mg/dL (<=1.0)
[2017-10-03 01:23] VITALS: BP 135/84
[2017-10-03] MEDS: HYDROmorphone 2 MG/ML SYRINGE IVP PRN ×7 (01:42→21:46)
[2017-10-03] MEDS: ACETAMINOPHEN 325 MG TABLET PO PRN ×2 (01:48→14:56)
[2017-10-03 04:35] VITALS: BP 124/80
[2017-10-03 07:40] VITALS: BP 95/53
[2017-10-03] MEDS: PANTOPRAZOLE SODIUM 40 MG/VIAL IVP SCH ×2 (08:08→23:03)
[2017-10-03] MEDS: ChlordiazePOXIDE HCL 25 MG CAPSULE PO SCH ×2 (08:08→21:49)
[2017-10-03 11:14] VITALS: BP 115/72
[2017-10-03 15:15] VITALS: BP 116/73
[2017-10-03 20:22] VITALS: BP 117/74
[2017-10-03] MEDS: CefTRIAXone 1 GM/DEXTROSE 50 ML IV SCH (21:49)
[2017-10-04 00:18] VITALS: BP 130/96
[2017-10-04] MEDS: HYDROmorphone 2 MG/ML SYRINGE IVP PRN ×3 (01:19→08:06)
[2017-10-04 04:42] VITALS: BP 107/66
[2017-10-04 07:04] LABS: BASOPHILS % (AUTO) 0.7 % (0.0-2.0); EOSINOPHILS % (AUTO) 0.7 % (1.0-6.0); HEMATOCRIT 31.8 % (41-53); HEMOGLOBIN 10.6 g/dL (13.5-17.5); LYMPHOCYTES # (AUTO) 2.6 K/uL (1.0-4.8); LYMPHOCYTES % (AUTO) 38.6 % (22.0-44.0); MEAN CORPUSCULAR HEMOGLOBIN 27.5 pg (26.0-34.0); MEAN CORPUSCULAR HGB CONC 33.2 G/dL (31.0-37.0); MEAN CORPUSCULAR VOLUME 83 fL (80-100); MONOCYTES # (AUTO) 0.5 K/uL (0.1-1.0); MONOCYTES % (AUTO) 7.3 % (2.0-9.0); NEUTROPHILS # (AUTO) 3.5 K/uL (1.8-7.7); NEUTROPHILS % (AUTO) 52.7 % (40.0-70.0); PLATELET COUNT (AUTO) 324 K/uL (150-450); RED BLOOD CELL COUNT(AUTO) 3.85 MIL/uL (4.50-5.90); RED CELL DISTRIBUTION WIDTH 17.9 % (11.5-14.5)
[2017-10-04 07:18] LABS: ANION GAP 6 mmol/L (8-16); CALCIUM, TOTAL 8.4 mg/dL (8.8-10.5); CARBON DIOXIDE 27 mmol/L (22-29); CHLORIDE 100 mmol/L (98-107); CREATININE 1.06 mg/dL (0.60-1.30); GLOMERULAR FILTR. RATE CALC > 60 mL/min (>60); GLUCOSE,RANDOM 126 mg/dL (70-110); POTASSIUM 3.9 mmol/L (3.5-5.1); SODIUM SERUM 133 mmol/L (136-145); UREA NITROGEN, BLOOD 20 mg/dL (7-18)
[2017-10-04 08:00] VITALS: BP 98/58
[2017-10-04] MEDS: PANTOPRAZOLE SODIUM 40 MG/VIAL IVP SCH (08:06)
[2017-10-04] MEDS: ChlordiazePOXIDE HCL 25 MG CAPSULE PO SCH (08:06)
[2017-10-04 11:32] VITALS: BP 105/75
[2017-10-04] MEDS ORDERED: HYDROmorphone 2 MG/ML SYRINGE IVP PRN (12:00)
[2017-10-04 16:07] VITALS: BP 110/75
[2017-10-04] MEDS: MORPHINE SULFATE 2 MG/ML SYRINGE IVP PRN (18:16)
[2017-10-04] MEDS ORDERED: MORPHINE SULFATE 2 MG/ML SYRINGE IVP PRN (18:30)
== END 2017-10-04 19:40 | disposition short-term general hospital (02) | DRG 282 ==
LOC: EMS 08:33 → 6N 12:52
PROVIDERS: ADMIT Internal Medicine; ATTEND Internal Medicine
DX: K85.90 Acute pancreatitis without necrosis or infection, unspecified (principal); J69.0 Pneumonitis due to inhalation of food and vomit; F10.239 Alcohol dependence with withdrawal, unspecified; K86.1 Other chronic pancreatitis; B19.20 Unspecified viral hepatitis C without hepatic coma; F12.90 Cannabis use, unspecified, uncomplicated; F17.210 Nicotine dependence, cigarettes, uncomplicated; E86.0 Dehydration; Y90.9 Presence of alcohol in blood, level not specified; K21.9 Gastro-esophageal reflux disease without esophagitis; J98.11 Atelectasis; K29.20 Alcoholic gastritis without bleeding; K86.3 Pseudocyst of pancreas; M19.90 Unspecified osteoarthritis, unspecified site; G89.29 Other chronic pain; M25.561 Pain in right knee; Z59.0 Homelessness; Z79.899 Other long term (current) drug therapy
CPT/HCPCS: 74177; 83735; 87040; 93005; 96361; 96374; 96375; 96376; 99285; C9113; J0360; J0696; J1170; J1885; J2060; J2270; J2405; J3411; J3475; J3490; J7030; J7060

== ENCOUNTER 2018-01-06 21:21 | Inpatient (IN) | payer MEDICAID ==
[~2018-01-06] VITALS: Ht 167.6 cm; Wt 79.9 kg
[~2018-01-06 21:21] MED LIST changes: +PANT40TA25 PO
[2018-01-06 21:58] LABS: BASOPHILS % (AUTO) 0.7 % (0.0-2.0); EOSINOPHILS % (AUTO) 4.8 % (1.0-6.0); HEMATOCRIT 39.7 % (41-53); HEMOGLOBIN 13.5 g/dL (13.5-17.5); LYMPHOCYTES # (AUTO) 2.4 K/uL (1.0-4.8); LYMPHOCYTES % (AUTO) 20.4 % (22.0-44.0); MEAN CORPUSCULAR HEMOGLOBIN 28.5 pg (26.0-34.0); MEAN CORPUSCULAR HGB CONC 33.9 G/dL (31.0-37.0); MEAN CORPUSCULAR VOLUME 84 fL (80-100); MONOCYTES # (AUTO) 1.3 K/uL (0.1-1.0); MONOCYTES % (AUTO) 11.2 % (2.0-9.0); NEUTROPHILS # (AUTO) 7.5 K/uL (1.8-7.7); NEUTROPHILS % (AUTO) 62.9 % (40.0-70.0); PLATELET COUNT (AUTO) 348 K/uL (150-450); RED BLOOD CELL COUNT(AUTO) 4.72 MIL/uL (4.50-5.90); RED CELL DISTRIBUTION WIDTH 15.7 % (11.5-14.5)
[2018-01-06 22:06] LABS: ANION GAP 9 mmol/L (8-16); CALCIUM, TOTAL 8.6 mg/dL (8.8-10.5); CARBON DIOXIDE 26 mmol/L (22-29); CHLORIDE 93 mmol/L (98-107); CREATININE 0.68 mg/dL (0.60-1.30); GLOMERULAR FILTR. RATE CALC > 60 mL/min (>60); GLUCOSE,RANDOM 130 mg/dL (70-110); SODIUM SERUM 128 mmol/L (136-145); UREA NITROGEN, BLOOD 6 mg/dL (7-18)
[2018-01-06 22:13] LABS: ALANINE AMINOTRANSFERASE 15 U/L (12-78); ALKALINE PHOSPHATASE 185 U/L (46-116); ASPARTATE AMINOTRANSFERASE 20 U/L (15-37); BILIRUBIN,TOTAL 0.3 mg/dL (0.1-1.0); TOTAL PROTEIN, SERUM 7.6 g/dL (6.4-8.2)
[2018-01-06 22:26] LABS: LIPASE 3332 U/L (73-393)
[2018-01-07 00:13] LABS: APPEARANCE,URINE CLEAR (CLEAR); BILIRUBIN,URINE NEGATIVE (NEGATIVE); GLUCOSE, URINE (UA) NEGATIVE (NEGATIVE); KETONES,URINE NEGATIVE (NEGATIVE); LEUKOCYTE ESTERASE ,URINE NEGATIVE (NEGATIVE); NITRATE,URINE NEGATIVE (NEGATIVE); OCCULT BLOOD,URINE TRACE (NEGATIVE); PROTEIN,URINE NEGATIVE (NEGATIVE); UROBILINOGEN,URINE 0.2 mg/dL (<=1.0)
[2018-01-07 00:26] LABS: BACTERIA,URINE None Seen /HPF (None Seen); RBC,URINE 0-2 /HPF (0-2); SQUAMOUS EPITHELIAL CELL,UR Rare /LPF (None Seen); WBC,URINE None Seen /HPF (0-5)
[2018-01-07] MEDS ORDERED: MORPHINE SULFATE 4 MG/ML SYRINGE IVP ONE ×2 (00:30→01:45)
[2018-01-07] MEDS ORDERED: SODIUM CHLORIDE 0.9% 1,000 ML IV ONE (00:30)
[2018-01-07] MEDS ORDERED: FAMOTIDINE 10 MG/ML 2 ML VIAL IVP ONE (00:30)
[2018-01-07] MEDS ORDERED: PROCHLORPERAZINE EDISYLATE 5 MG/ML 2 ML VIAL IVP ONE (00:30)
[2018-01-07] MEDS ORDERED: MAGNESIUM SULFATE 2 GM, MVI, ADULT NO.1 WITH VIT K 10 ML, THIAMINE HCL 100 MG, FOLIC AC... IV ONE ×5 (00:30)
[2018-01-07] MEDS ORDERED: LORazepam 2 MG/ML VIAL IVP ONE (02:15)
[2018-01-07] MEDS ORDERED: LABETALOL HCL 5 MG/ML 20 ML VIAL IVP ONE (02:15)
[2018-01-07] MEDS ORDERED: ACETAMINOPHEN 325 MG TABLET PO PRN ×2 (03:30→16:30)
[2018-01-07] MEDS ORDERED: HYDROCODONE/ACETAMINOPHEN 5-325 MG TABLET PO PRN (03:30)
[2018-01-07] MEDS ORDERED: LORazepam 2 MG/ML VIAL IVP PRN (03:30)
[2018-01-07 04:50] VITALS: BP 129/86
[2018-01-07] MEDS ORDERED: PNEUMOCOCCAL VACCINE POLYVALENT 0.5 ML VIAL [PPSV23] IM ONE (06:30)
[2018-01-07 07:22] LABS: BASOPHILS % (AUTO) 1.2 % (0.0-2.0); EOSINOPHILS % (AUTO) 3.5 % (1.0-6.0); HEMATOCRIT 36.3 % (41-53); HEMOGLOBIN 12.5 g/dL (13.5-17.5); LYMPHOCYTES # (AUTO) 3.1 K/uL (1.0-4.8); LYMPHOCYTES % (AUTO) 30.1 % (22.0-44.0); MEAN CORPUSCULAR HEMOGLOBIN 29.1 pg (26.0-34.0); MEAN CORPUSCULAR HGB CONC 34.4 G/dL (31.0-37.0); MEAN CORPUSCULAR VOLUME 84 fL (80-100); MONOCYTES # (AUTO) 1.2 K/uL (0.1-1.0); MONOCYTES % (AUTO) 11.7 % (2.0-9.0); NEUTROPHILS # (AUTO) 5.6 K/uL (1.8-7.7); NEUTROPHILS % (AUTO) 53.5 % (40.0-70.0); PLATELET COUNT (AUTO) 343 K/uL (150-450); RED CELL DISTRIBUTION WIDTH 15.9 % (11.5-14.5)
[2018-01-07] MEDS ORDERED: DEXTROSE 5%-0.9% SODIUM CHL 1,000 ML IV SCH (08:00)
[2018-01-07] MEDS ORDERED: MAGNESIUM SULFATE 2 GM, MVI, ADULT NO.1 WITH VIT K 10 ML, THIAMINE HCL 100 MG, FOLIC AC... IV SCH ×5 (08:00)
[2018-01-07] MEDS ORDERED: ONDANSETRON HCL 4 MG/2 ML VIAL IVP PRN ×2 (08:00)
[2018-01-07 08:05] LABS: ALANINE AMINOTRANSFERASE 13 U/L (12-78); ALBUMIN 2.5 g/dL (3.4-5.0); ALKALINE PHOSPHATASE 162 U/L (46-116); ANION GAP 7 mmol/L (8-16); ASPARTATE AMINOTRANSFERASE 21 U/L (15-37); BILIRUBIN,TOTAL 0.4 mg/dL (0.1-1.0); CALCIUM, TOTAL 7.9 mg/dL (8.8-10.5); CARBON DIOXIDE 25 mmol/L (22-29); CHLORIDE 100 mmol/L (98-107); CREATININE 0.54 mg/dL (0.60-1.30); GLOMERULAR FILTR. RATE CALC > 60 mL/min (>60); GLUCOSE,RANDOM 124 mg/dL (70-110); POTASSIUM 4.2 mmol/L (3.5-5.1); SODIUM SERUM 132 mmol/L (136-145); TOTAL PROTEIN, SERUM 6.6 g/dL (6.4-8.2); UREA NITROGEN, BLOOD 7 mg/dL (7-18)
[2018-01-07 08:10] VITALS: BP 133/87
[2018-01-07] MEDS ORDERED: PERMETHRIN 1% 60 ML LOTION TP ONE (08:30)
[2018-01-07] MEDS ORDERED: PERMETHRIN 5% 60 GM CREAM TP ONE (08:30)
[2018-01-07] MEDS ORDERED: PANTOPRAZOLE SODIUM 40 MG/VIAL IVP SCH ×2 (09:00)
[2018-01-07] MEDS: PANTOPRAZOLE SODIUM 40 MG/VIAL IVP SCH (09:01)
[2018-01-07] MEDS: ChlordiazePOXIDE HCL 10 MG CAPSULE PO SCH ×4 (09:01→23:36)
[2018-01-07] MEDS: FOLIC ACID 1 MG TABLET PO SCH ×2 (09:01→19:45)
[2018-01-07] MEDS: HEPARIN SODIUM,PORCINE 5,000 UNITS/ML VIAL SQ SCH ×3 (09:01→23:36)
[2018-01-07] MEDS: MORPHINE SULFATE 4 MG/ML SYRINGE IVP PRN ×4 (09:16→21:24)
[2018-01-07] MEDS: THIAMINE HCL 100 MG TABLET PO SCH ×2 (12:04→19:45)
[2018-01-07 12:05] VITALS: BP 145/98
[2018-01-07 16:43] VITALS: BP 152/99
[2018-01-07] MEDS: [UNRECOGNIZED DRUG - REMARK] IV SCH ×12 (18:30→23:35)
[2018-01-07 19:58] VITALS: BP 149/90
[2018-01-07 23:57] VITALS: BP 126/82
[2018-01-08] MEDS: MORPHINE SULFATE 4 MG/ML SYRINGE IVP PRN ×6 (01:04→21:39)
[2018-01-08] MEDS: [UNRECOGNIZED DRUG - REMARK] IV SCH ×12 (04:30→21:44)
[2018-01-08 05:16] VITALS: BP 141/84
[2018-01-08 06:41] LABS: EOSINOPHILS % (AUTO) 8.1 % (1.0-6.0); HEMATOCRIT 33.3 % (41-53); HEMOGLOBIN 11.4 g/dL (13.5-17.5); LYMPHOCYTES # (AUTO) 2.4 K/uL (1.0-4.8); LYMPHOCYTES % (AUTO) 29.5 % (22.0-44.0); MEAN CORPUSCULAR HGB CONC 34.1 G/dL (31.0-37.0); MEAN CORPUSCULAR VOLUME 85 fL (80-100); MONOCYTES % (AUTO) 12.1 % (2.0-9.0); NEUTROPHILS # (AUTO) 4.1 K/uL (1.8-7.7); NEUTROPHILS % (AUTO) 49.3 % (40.0-70.0); PLATELET COUNT (AUTO) 302 K/uL (150-450); RED BLOOD CELL COUNT(AUTO) 3.92 MIL/uL (4.50-5.90); RED CELL DISTRIBUTION WIDTH 15.6 % (11.5-14.5)
[2018-01-08 07:19] LABS: AMYLASE 271 U/L (25-115); ANION GAP 7 mmol/L (8-16); CARBON DIOXIDE 26 mmol/L (22-29); CHLORIDE 100 mmol/L (98-107); CREATININE 0.69 mg/dL (0.60-1.30); GLOMERULAR FILTR. RATE CALC > 60 mL/min (>60); GLUCOSE,RANDOM 112 mg/dL (70-110); LIPASE 621 U/L (73-393); POTASSIUM 4.2 mmol/L (3.5-5.1); SODIUM SERUM 133 mmol/L (136-145); UREA NITROGEN, BLOOD 10 mg/dL (7-18)
[2018-01-08] MEDS: ChlordiazePOXIDE HCL 10 MG CAPSULE PO SCH ×4 (07:20→23:33)
[2018-01-08] MEDS: FOLIC ACID 1 MG TABLET PO SCH ×2 (08:16→21:38)
[2018-01-08] MEDS: THIAMINE HCL 100 MG TABLET PO SCH ×2 (08:16→21:39)
[2018-01-08] MEDS: HEPARIN SODIUM,PORCINE 5,000 UNITS/ML VIAL SQ SCH ×3 (08:16→23:33)
[2018-01-08] MEDS: PANTOPRAZOLE SODIUM 40 MG/VIAL IVP SCH (08:17)
[2018-01-08 08:32] VITALS: BP 149/103
[2018-01-08 10:04] VITALS: BP 153/87
[2018-01-08 11:05] VITALS: BP 160/103
[2018-01-08] MEDS: AmLODIPine BESYLATE 10 MG TABLET PO SCH (14:55)
[2018-01-08] MEDS ORDERED: BARIUM SULFATE 0.1% SUSPENSION 450 ML BOTTLE ONE (15:38)
[2018-01-08 15:48] VITALS: BP 138/83
[2018-01-08 19:02] VITALS: BP 142/92
[2018-01-08] MEDS ORDERED: IOVERSOL 350 MG/ML 100 ML VIAL ONE (21:11)
[2018-01-08] MEDS: ZOLPIDEM TARTRATE 5 MG TABLET PO PRN (21:38)
[2018-01-09] VITALS (7 sets, daily range): BP systolic 125–156; BP diastolic 88–98
[2018-01-09] MEDS: MORPHINE SULFATE 4 MG/ML SYRINGE IVP PRN ×4 (03:39→19:57)
[2018-01-09] MEDS: ChlordiazePOXIDE HCL 10 MG CAPSULE PO SCH ×4 (06:06→23:57)
[2018-01-09 06:34] LABS: BASOPHILS % (AUTO) 0.6 % (0.0-2.0); EOSINOPHILS % (AUTO) 5.1 % (1.0-6.0); HEMATOCRIT 33.6 % (41-53); HEMOGLOBIN 11.4 g/dL (13.5-17.5); LYMPHOCYTES # (AUTO) 2.7 K/uL (1.0-4.8); LYMPHOCYTES % (AUTO) 29.2 % (22.0-44.0); MEAN CORPUSCULAR HEMOGLOBIN 28.9 pg (26.0-34.0); MEAN CORPUSCULAR VOLUME 85 fL (80-100); MONOCYTES # (AUTO) 0.8 K/uL (0.1-1.0); MONOCYTES % (AUTO) 8.7 % (2.0-9.0); NEUTROPHILS # (AUTO) 5.2 K/uL (1.8-7.7); NEUTROPHILS % (AUTO) 56.4 % (40.0-70.0); PLATELET COUNT (AUTO) 313 K/uL (150-450); RED BLOOD CELL COUNT(AUTO) 3.96 MIL/uL (4.50-5.90); RED CELL DISTRIBUTION WIDTH 15.5 % (11.5-14.5)
[2018-01-09 06:46] LABS: ANION GAP 10 mmol/L (8-16); CARBON DIOXIDE 23 mmol/L (22-29); CHLORIDE 99 mmol/L (98-107); CREATININE 0.65 mg/dL (0.60-1.30); GLOMERULAR FILTR. RATE CALC > 60 mL/min (>60); GLUCOSE,RANDOM 150 mg/dL (70-110); POTASSIUM 3.8 mmol/L (3.5-5.1); SODIUM SERUM 132 mmol/L (136-145); UREA NITROGEN, BLOOD 4 mg/dL (7-18)
[2018-01-09] MEDS: PANTOPRAZOLE SODIUM 40 MG/VIAL IVP SCH (09:04)
[2018-01-09] MEDS: HEPARIN SODIUM,PORCINE 5,000 UNITS/ML VIAL SQ SCH ×3 (09:04→23:57)
[2018-01-09] MEDS: FOLIC ACID 1 MG TABLET PO SCH ×2 (09:05→19:57)
[2018-01-09] MEDS: AmLODIPine BESYLATE 10 MG TABLET PO SCH (09:05)
[2018-01-09] MEDS: THIAMINE HCL 100 MG TABLET PO SCH ×2 (09:05→19:57)
[2018-01-09] MEDS: [UNRECOGNIZED DRUG - REMARK] IV SCH ×6 (10:50)
[2018-01-09] MEDS: ZOLPIDEM TARTRATE 5 MG TABLET PO PRN (20:06)
[2018-01-10] VITALS (7 sets, daily range): BP systolic 140–164; BP diastolic 92–114
[2018-01-10] MEDS: MORPHINE SULFATE 4 MG/ML SYRINGE IVP PRN ×5 (00:04→20:53)
[2018-01-10] MEDS: [UNRECOGNIZED DRUG - REMARK] IV SCH ×12 (01:42→18:47)
[2018-01-10] MEDS: ChlordiazePOXIDE HCL 10 MG CAPSULE PO SCH ×4 (05:34→23:47)
[2018-01-10 06:21] LABS: BASOPHILS % (AUTO) 0.9 % (0.0-2.0); EOSINOPHILS % (AUTO) 7.6 % (1.0-6.0); HEMATOCRIT 33.5 % (41-53); HEMOGLOBIN 11.3 g/dL (13.5-17.5); LYMPHOCYTES # (AUTO) 2.2 K/uL (1.0-4.8); LYMPHOCYTES % (AUTO) 31.4 % (22.0-44.0); MEAN CORPUSCULAR HEMOGLOBIN 28.8 pg (26.0-34.0); MEAN CORPUSCULAR HGB CONC 33.7 G/dL (31.0-37.0); MEAN CORPUSCULAR VOLUME 86 fL (80-100); MONOCYTES # (AUTO) 0.7 K/uL (0.1-1.0); MONOCYTES % (AUTO) 9.9 % (2.0-9.0); NEUTROPHILS # (AUTO) 3.6 K/uL (1.8-7.7); NEUTROPHILS % (AUTO) 50.2 % (40.0-70.0); PLATELET COUNT (AUTO) 292 K/uL (150-450); RED BLOOD CELL COUNT(AUTO) 3.92 MIL/uL (4.50-5.90); RED CELL DISTRIBUTION WIDTH 15.5 % (11.5-14.5)
[2018-01-10 06:44] LABS: ANION GAP 11 mmol/L (8-16); CALCIUM, TOTAL 8.3 mg/dL (8.8-10.5); CARBON DIOXIDE 24 mmol/L (22-29); CHLORIDE 101 mmol/L (98-107); CREATININE 0.67 mg/dL (0.60-1.30); GLOMERULAR FILTR. RATE CALC > 60 mL/min (>60); GLUCOSE,RANDOM 156 mg/dL (70-110); POTASSIUM 3.8 mmol/L (3.5-5.1); SODIUM SERUM 136 mmol/L (136-145); UREA NITROGEN, BLOOD 9 mg/dL (7-18)
[2018-01-10] MEDS: FOLIC ACID 1 MG TABLET PO SCH ×2 (09:31→20:52)
[2018-01-10] MEDS: THIAMINE HCL 100 MG TABLET PO SCH ×2 (09:31→20:52)
[2018-01-10] MEDS: AmLODIPine BESYLATE 10 MG TABLET PO SCH (09:32)
[2018-01-10] MEDS: PANTOPRAZOLE SODIUM 40 MG/VIAL IVP SCH (09:33)
[2018-01-10] MEDS: HEPARIN SODIUM,PORCINE 5,000 UNITS/ML VIAL SQ SCH ×3 (09:33→23:48)
[2018-01-10] MEDS: LISINOPRIL 5 MG TABLET PO SCH (17:35)
[2018-01-10] MEDS: ZOLPIDEM TARTRATE 5 MG TABLET PO PRN (20:52)
[2018-01-11] MEDS: MORPHINE SULFATE 4 MG/ML SYRINGE IVP PRN ×6 (01:02→20:33)
[2018-01-11 01:10] VITALS: BP 148/86
[2018-01-11] MEDS: [UNRECOGNIZED DRUG - REMARK] IV SCH ×12 (03:10→13:10)
[2018-01-11 04:40] VITALS: BP 144/97
[2018-01-11] MEDS: ChlordiazePOXIDE HCL 10 MG CAPSULE PO SCH ×3 (05:07→17:18)
[2018-01-11 07:10] VITALS: BP 155/106
[2018-01-11] MEDS: PANTOPRAZOLE SODIUM 40 MG/VIAL IVP SCH (08:42)
[2018-01-11] MEDS: AmLODIPine BESYLATE 10 MG TABLET PO SCH (08:42)
[2018-01-11] MEDS: LISINOPRIL 5 MG TABLET PO SCH (08:42)
[2018-01-11] MEDS: HEPARIN SODIUM,PORCINE 5,000 UNITS/ML VIAL SQ SCH ×2 (08:42→17:18)
[2018-01-11] MEDS: THIAMINE HCL 100 MG TABLET PO SCH ×2 (08:43→20:33)
[2018-01-11] MEDS: FOLIC ACID 1 MG TABLET PO SCH ×2 (08:43→20:33)
[2018-01-11 11:10] VITALS: BP 168/107
[2018-01-11 15:14] VITALS: BP 147/92
[2018-01-11 19:30] VITALS: BP 152/98
[2018-01-11] MEDS: ZOLPIDEM TARTRATE 5 MG TABLET PO PRN (20:38)
== END 2018-01-11 21:55 | disposition short-term general hospital (02) | DRG 282 ==
LOC: EMS 21:26 → 6N 01-07 02:28
PROVIDERS: ADMIT Internal Medicine; ATTEND Internal Medicine
DX: K85.90 Acute pancreatitis without necrosis or infection, unspecified (principal); J98.11 Atelectasis; F10.20 Alcohol dependence, uncomplicated; B85.2 Pediculosis, unspecified; F12.90 Cannabis use, unspecified, uncomplicated; K86.3 Pseudocyst of pancreas; K86.1 Other chronic pancreatitis; K21.9 Gastro-esophageal reflux disease without esophagitis; Z59.0 Homelessness; Z82.49 Family history of ischemic heart disease and other diseases of the circulatory system; Z82.5 Family history of asthma and other chronic lower respiratory diseases; Z87.891 Personal history of nicotine dependence
CPT/HCPCS: 74177; 76700; 83735; 87040; 96365; 96366; 96375; 96376; 99285; C9113; J0780; J1644; J2060; J2270; J3411; J3475; J3490; J7030; J7042

== ENCOUNTER 2018-05-08 23:15 | Inpatient (IN) | payer MEDICAID ==
[~2018-05-08] VITALS: Ht 167.6 cm; Wt 82.1 kg
[2018-05-08 23:58] LABS: BASOPHILS % (AUTO) 0.9 % (0.0-2.0); EOSINOPHILS % (AUTO) 1.2 % (1.0-6.0); HEMATOCRIT 38.2 % (41-53); HEMOGLOBIN 12.8 g/dL (13.5-17.5); LYMPHOCYTES # (AUTO) 6.3 K/uL (1.0-4.8); LYMPHOCYTES % (AUTO) 37.3 % (22.0-44.0); MEAN CORPUSCULAR HEMOGLOBIN 29.5 pg (26.0-34.0); MEAN CORPUSCULAR HGB CONC 33.5 G/dL (31.0-37.0); MEAN CORPUSCULAR VOLUME 88 fL (80-100); MONOCYTES % (AUTO) 11.7 % (2.0-9.0); NEUTROPHILS # (AUTO) 8.3 K/uL (1.8-7.7); NEUTROPHILS % (AUTO) 48.9 % (40.0-70.0); PLATELET COUNT (AUTO) 402 K/uL (150-450); RED BLOOD CELL COUNT(AUTO) 4.34 MIL/uL (4.50-5.90); RED CELL DISTRIBUTION WIDTH 15.3 % (11.5-14.5)
[2018-05-09] MEDS ORDERED: ONDANSETRON HCL 4 MG/2 ML VIAL IVP ONE
[2018-05-09] MEDS ORDERED: MORPHINE SULFATE 4 MG/ML SYRINGE IVP ONE
[2018-05-09 00:19] LABS: ALANINE AMINOTRANSFERASE 70 U/L (12-78); ALBUMIN 3.9 g/dL (3.4-5.0); ALKALINE PHOSPHATASE 414 U/L (46-116); ANION GAP 13 mmol/L (8-16); ASPARTATE AMINOTRANSFERASE 25 U/L (15-37); BILIRUBIN,TOTAL 0.3 mg/dL (0.1-1.0); CALCIUM, TOTAL 9.5 mg/dL (8.8-10.5); CARBON DIOXIDE 23 mmol/L (22-29); CHLORIDE 97 mmol/L (98-107); CREATININE 1.06 mg/dL (0.60-1.30); GLOMERULAR FILTR. RATE CALC > 60 mL/min (>60); LIPASE 724 U/L (73-393); POTASSIUM 3.4 mmol/L (3.5-5.1); SODIUM SERUM 133 mmol/L (136-145); TOTAL PROTEIN, SERUM 9.1 g/dL (6.4-8.2); UREA NITROGEN, BLOOD 22 mg/dL (7-18)
[2018-05-09 00:22] LABS: GLUCOSE,RANDOM 420 mg/dL (70-110)
[2018-05-09] MEDS ORDERED: HYDROmorphone 2 MG/ML SYRINGE IVP ONE (00:45)
[2018-05-09 00:57] LABS: APPEARANCE,URINE CLEAR (CLEAR); BILIRUBIN,URINE NEGATIVE (NEGATIVE); GLUCOSE, URINE (UA) >=1000 mg/dL (NEGATIVE); KETONES,URINE 15 mg/dL (NEGATIVE); LEUKOCYTE ESTERASE ,URINE NEGATIVE (NEGATIVE); NITRATE,URINE NEGATIVE (NEGATIVE); OCCULT BLOOD,URINE NEGATIVE (NEGATIVE); PROTEIN,URINE TRACE (NEGATIVE); UROBILINOGEN,URINE 0.2 mg/dL (<=1.0)
[2018-05-09 01:19] LABS: GLUCOSE,POINT OF CARE 378 MG/DL (70-110)
[2018-05-09 01:29] LABS: BACTERIA,URINE None Seen /HPF (None Seen); RBC,URINE None Seen /HPF (0-2); WBC,URINE None Seen /HPF (0-5)
[2018-05-09] MEDS ORDERED: SODIUM CHLORIDE 0.9% 1,000 ML IV ONE ×2 (01:30)
[2018-05-09] MEDS ORDERED: LABETALOL HCL 5 MG/ML 20 ML VIAL IVP ONE (03:15)
[2018-05-09] MEDS ORDERED: 0.9% SODIUM CHLORIDE 10 ML SYRINGE IVP PRN ×2 (03:45→17:45)
[2018-05-09] MEDS ORDERED: ONDANSETRON HCL 4 MG/2 ML VIAL IVP PRN ×2 (03:45→17:45)
[2018-05-09] MEDS ORDERED: KETOROLAC TROMETHAMINE 30 MG/ML VIAL IVP ONE (04:30)
[2018-05-09 05:34] LABS: GLUCOSE,POINT OF CARE 314 MG/DL (70-110)
[2018-05-09 07:33] LABS: GLUCOSE,POINT OF CARE 296 MG/DL (70-110)
[2018-05-09 08:54] VITALS: BP 155/101
[2018-05-09] MEDS: MORPHINE SULFATE 4 MG/ML SYRINGE IVP PRN ×2 (09:02→12:58)
[2018-05-09 11:04] VITALS: BP_SYST 138; BP_SYST 84; BP_DIAS 84; BP_DIAS 97
[2018-05-09 15:31] VITALS: BP 111/75
[2018-05-09] MEDS ORDERED: ZOLPIDEM TARTRATE 5 MG TABLET PO PRN (17:45)
[2018-05-09] MEDS ORDERED: MORPHINE SULFATE 10 MG/ML SYRINGE IVP PRN (17:45)
[2018-05-09] MEDS: MAGNESIUM SULFATE 2 GM, MVI, ADULT NO.1 WITH VIT K 10 ML, THIAMINE HCL 100 MG, FOLIC AC... IV SCH ×5 (18:42)
[2018-05-09] MEDS: PANTOPRAZOLE SODIUM 40 MG/VIAL IVP SCH (18:42)
[2018-05-09] MEDS: HEPARIN SODIUM,PORCINE 5,000 UNITS/ML VIAL SQ SCH (18:43)
[2018-05-09] MEDS: MORPHINE SULFATE 2 MG/ML SYRINGE IVP PRN ×2 (18:43→21:48)
[2018-05-09 19:45] VITALS: BP 113/74
[2018-05-09] MEDS ORDERED: DEXTROSE 50%-WATER 25 GM/50 ML SYRINGE IVP PRN (20:45)
[2018-05-09] MEDS ORDERED: POTASSIUM CHLORIDE 20 MEQ ER TABLET PO PRN (20:45)
[2018-05-09] MEDS ORDERED: POTASSIUM CHL 10 MEQ/WATER 50 ML IV PRN (20:45)
[2018-05-09] MEDS: INSULIN LISPRO 100 UNITS/ML SQ PRN (21:55)
[2018-05-10 00:17] VITALS: BP 108/74
[2018-05-10] MEDS: HEPARIN SODIUM,PORCINE 5,000 UNITS/ML VIAL SQ SCH ×4 (00:54→23:27)
[2018-05-10] MEDS: MORPHINE SULFATE 2 MG/ML SYRINGE IVP PRN ×6 (00:54→21:31)
[2018-05-10 04:30] VITALS: BP 105/71
[2018-05-10 05:58] LABS: BASOPHILS % (AUTO) 1.3 % (0.0-2.0); EOSINOPHILS % (AUTO) 2.8 % (1.0-6.0); HEMATOCRIT 33.1 % (41-53); HEMOGLOBIN 11.1 g/dL (13.5-17.5); LYMPHOCYTES # (AUTO) 4.3 K/uL (1.0-4.8); MEAN CORPUSCULAR HEMOGLOBIN 29.5 pg (26.0-34.0); MEAN CORPUSCULAR HGB CONC 33.6 G/dL (31.0-37.0); MEAN CORPUSCULAR VOLUME 88 fL (80-100); MONOCYTES # (AUTO) 0.9 K/uL (0.1-1.0); MONOCYTES % (AUTO) 10.7 % (2.0-9.0); NEUTROPHILS % (AUTO) 35.2 % (40.0-70.0); PLATELET COUNT (AUTO) 339 K/uL (150-450); RED BLOOD CELL COUNT(AUTO) 3.77 MIL/uL (4.50-5.90); RED CELL DISTRIBUTION WIDTH 15.7 % (11.5-14.5)
[2018-05-10] MEDS: INSULIN LISPRO 100 UNITS/ML SQ PRN ×4 (06:02→21:22)
[2018-05-10 06:20] LABS: ANION GAP 8 mmol/L (8-16); CALCIUM, TOTAL 8.5 mg/dL (8.8-10.5); CARBON DIOXIDE 26 mmol/L (22-29); CHLORIDE 101 mmol/L (98-107); CREATININE 0.77 mg/dL (0.60-1.30); GLOMERULAR FILTR. RATE CALC > 60 mL/min (>60); GLUCOSE,RANDOM 198 mg/dL (70-110); POTASSIUM 3.5 mmol/L (3.5-5.1); SODIUM SERUM 135 mmol/L (136-145); UREA NITROGEN, BLOOD 14 mg/dL (7-18)
[2018-05-10 07:04] LABS: GLUCOMETER DEV NAME(LOC) 5S 1M; GLUCOSE,POINT OF CARE 299 MG/DL (70-110)
[2018-05-10 07:56] VITALS: BP 101/64
[2018-05-10] MEDS: PANTOPRAZOLE SODIUM 40 MG/VIAL IVP SCH (10:45)
[2018-05-10 10:50] VITALS: BP 141/83
[2018-05-10] MEDS: MAGNESIUM SULFATE 2 GM, MVI, ADULT NO.1 WITH VIT K 10 ML, THIAMINE HCL 100 MG, FOLIC AC... IV SCH ×5 (17:11)
[2018-05-10 17:19] VITALS: BP 125/87
[2018-05-10 19:55] VITALS: BP 143/94
[2018-05-11 00:56] VITALS: BP 102/60
[2018-05-11] MEDS: MORPHINE SULFATE 2 MG/ML SYRINGE IVP PRN ×7 (01:08→21:18)
[2018-05-11 05:04] VITALS: BP 125/93
[2018-05-11] MEDS: INSULIN LISPRO 100 UNITS/ML SQ PRN ×4 (06:07→21:18)
[2018-05-11 06:17] LABS: BASOPHILS % (AUTO) 1.3 % (0.0-2.0); EOSINOPHILS % (AUTO) 1.8 % (1.0-6.0); HEMATOCRIT 34.9 % (41-53); HEMOGLOBIN 11.9 g/dL (13.5-17.5); LYMPHOCYTES # (AUTO) 4.9 K/uL (1.0-4.8); LYMPHOCYTES % (AUTO) 42.4 % (22.0-44.0); MEAN CORPUSCULAR HEMOGLOBIN 29.8 pg (26.0-34.0); MEAN CORPUSCULAR HGB CONC 34.1 G/dL (31.0-37.0); MEAN CORPUSCULAR VOLUME 87 fL (80-100); MONOCYTES % (AUTO) 8.3 % (2.0-9.0); NEUTROPHILS # (AUTO) 5.3 K/uL (1.8-7.7); NEUTROPHILS % (AUTO) 46.2 % (40.0-70.0); PLATELET COUNT (AUTO) 396 K/uL (150-450); RED CELL DISTRIBUTION WIDTH 15.1 % (11.5-14.5)
[2018-05-11 06:37] LABS: ANION GAP 12 mmol/L (8-16); CALCIUM, TOTAL 8.9 mg/dL (8.8-10.5); CARBON DIOXIDE 23 mmol/L (22-29); CHLORIDE 101 mmol/L (98-107); CREATININE 0.83 mg/dL (0.60-1.30); GLOMERULAR FILTR. RATE CALC > 60 mL/min (>60); GLUCOSE,RANDOM 172 mg/dL (70-110); POTASSIUM 3.5 mmol/L (3.5-5.1); SODIUM SERUM 136 mmol/L (136-145); UREA NITROGEN, BLOOD 15 mg/dL (7-18)
[2018-05-11 07:55] VITALS: BP 141/96
[2018-05-11 08:14] LABS: GLUCOMETER DEV NAME(LOC) 5S 2Q; GLUCOSE,POINT OF CARE 258 MG/DL (70-110)
[2018-05-11 08:14] LABS: GLUCOMETER DEV NAME(LOC) 5S 2Q; GLUCOSE,POINT OF CARE 133 MG/DL (70-110)
[2018-05-11 08:14] LABS: GLUCOMETER DEV NAME(LOC) 5S 2Q; GLUCOSE,POINT OF CARE 303 MG/DL (70-110)
[2018-05-11 08:14] LABS: GLUCOMETER DEV NAME(LOC) 5S 2Q; GLUCOSE,POINT OF CARE 182 MG/DL (70-110)
[2018-05-11 08:14] LABS: GLUCOMETER DEV NAME(LOC) 5S 2Q; GLUCOSE,POINT OF CARE 194 MG/DL (70-110)
[2018-05-11 08:14] LABS: GLUCOMETER DEV NAME(LOC) 5S 2Q; GLUCOSE,POINT OF CARE 192 MG/DL (70-110)
[2018-05-11] MEDS: HEPARIN SODIUM,PORCINE 5,000 UNITS/ML VIAL SQ SCH ×2 (08:56→16:35)
[2018-05-11] MEDS: PANTOPRAZOLE SODIUM 40 MG/VIAL IVP SCH (08:57)
[2018-05-11] MEDS ORDERED: AMIT25TA9 PO (09:59)
[2018-05-11] MEDS ORDERED: OMEP20 PO (09:59)
[2018-05-11] MEDS ORDERED: LISI-661 PO (09:59)
[2018-05-11] MEDS ORDERED: BRIM155OS OU (09:59)
[2018-05-11] MEDS ORDERED: DORZ1DRO5 OP (09:59)
[2018-05-11] MEDS ORDERED: BRIM155OS OS (10:05)
[2018-05-11] MEDS ORDERED: COSO10OS OS (10:05)
[2018-05-11] MEDS: LISINOPRIL 10 MG TABLET PO SCH (11:17)
[2018-05-11 11:41] VITALS: BP 116/75
[2018-05-11] MEDS: BRIMONIDINE TARTRATE 0.15% 5 ML OPHTHALMIC SOLUTION OS SCH (11:51)
[2018-05-11] MEDS: DORZOLAMIDE/TIMOLOL 2-0.5% [22.3-6.8MG/ML] 10 ML OPHTHALMIC SOLUTION OS SCH (11:51)
[2018-05-11 15:46] VITALS: BP 123/92
[2018-05-11 19:30] VITALS: BP 148/101
[2018-05-11] MEDS ORDERED: AMITRIPTYLINE HCL 25 MG TABLET PO SCH (21:00)
[2018-05-12 00:09] VITALS: BP 109/66
[2018-05-12] MEDS: HEPARIN SODIUM,PORCINE 5,000 UNITS/ML VIAL SQ SCH ×3 (00:29→14:58)
[2018-05-12] MEDS: MORPHINE SULFATE 2 MG/ML SYRINGE IVP PRN ×5 (00:29→14:58)
[2018-05-12 00:39] LABS: GLUCOMETER DEV NAME(LOC) 5S 1M; GLUCOSE,POINT OF CARE 178 MG/DL (70-110)
[2018-05-12 00:39] LABS: GLUCOMETER DEV NAME(LOC) 5S 1M; GLUCOSE,POINT OF CARE 171 MG/DL (70-110)
[2018-05-12 04:30] VITALS: BP 135/80
[2018-05-12] MEDS: INSULIN LISPRO 100 UNITS/ML SQ PRN ×2 (06:18→12:19)
[2018-05-12 07:06] LABS: BASOPHILS % (AUTO) 1.5 % (0.0-2.0); EOSINOPHILS % (AUTO) 0.9 % (1.0-6.0); HEMATOCRIT 33.9 % (41-53); HEMOGLOBIN 11.5 g/dL (13.5-17.5); LYMPHOCYTES # (AUTO) 5.7 K/uL (1.0-4.8); LYMPHOCYTES % (AUTO) 39.4 % (22.0-44.0); MEAN CORPUSCULAR HEMOGLOBIN 29.6 pg (26.0-34.0); MEAN CORPUSCULAR VOLUME 87 fL (80-100); MONOCYTES % (AUTO) 7.1 % (2.0-9.0); NEUTROPHILS # (AUTO) 7.4 K/uL (1.8-7.7); NEUTROPHILS % (AUTO) 51.1 % (40.0-70.0); PLATELET COUNT (AUTO) 409 K/uL (150-450); RED BLOOD CELL COUNT(AUTO) 3.89 MIL/uL (4.50-5.90); RED CELL DISTRIBUTION WIDTH 15.4 % (11.5-14.5)
[2018-05-12 07:33] VITALS: BP 121/84
[2018-05-12 07:50] LABS: ANION GAP 10 mmol/L (8-16); CALCIUM, TOTAL 8.8 mg/dL (8.8-10.5); CARBON DIOXIDE 23 mmol/L (22-29); CHLORIDE 101 mmol/L (98-107); CREATININE 0.82 mg/dL (0.60-1.30); GLOMERULAR FILTR. RATE CALC > 60 mL/min (>60); GLUCOSE,RANDOM 174 mg/dL (70-110); POTASSIUM 3.5 mmol/L (3.5-5.1); SODIUM SERUM 134 mmol/L (136-145); UREA NITROGEN, BLOOD 12 mg/dL (7-18)
[2018-05-12] MEDS: PANTOPRAZOLE SODIUM 40 MG/VIAL IVP SCH (08:00)
[2018-05-12] MEDS: LISINOPRIL 10 MG TABLET PO SCH (08:01)
[2018-05-12] MEDS: BRIMONIDINE TARTRATE 0.15% 5 ML OPHTHALMIC SOLUTION OS SCH (08:01)
[2018-05-12] MEDS: DORZOLAMIDE/TIMOLOL 2-0.5% [22.3-6.8MG/ML] 10 ML OPHTHALMIC SOLUTION OS SCH (08:04)
[2018-05-12] MEDS ORDERED: SODIUM CHLORIDE 0.9% 250 ML IV ONE (08:21)
[2018-05-12 10:55] VITALS: BP 124/75
[2018-05-12] MEDS ORDERED: POTASSIUM CHLORIDE 20 MEQ ER TABLET PO ONE (12:00)
[2018-05-12] MEDS ORDERED: IBUP-1506 PO (12:45)
[2018-05-12 16:00] VITALS: BP 123/89
[2018-05-13 14:54] LABS: GLUCOMETER DEV NAME(LOC) 5S 2Q; GLUCOSE,POINT OF CARE 130 MG/DL (70-110)
[2018-05-13 14:55] LABS: GLUCOMETER DEV NAME(LOC) 5S 2Q; GLUCOSE,POINT OF CARE 177 MG/DL (70-110)
[2018-05-13 14:55] LABS: GLUCOMETER DEV NAME(LOC) 5S 2Q; GLUCOSE,POINT OF CARE 191 MG/DL (70-110)
[2018-05-13 14:55] LABS: GLUCOMETER DEV NAME(LOC) 5S 2Q; GLUCOSE,POINT OF CARE 146 MG/DL (70-110)
== END 2018-05-12 16:00 | disposition home or self-care (01) | DRG 282 ==
LOC: EMS 23:16 → 5S 05-09 07:36
PROVIDERS: ADMIT Family Medicine; ATTEND Family Medicine
DX: K85.90 Acute pancreatitis without necrosis or infection, unspecified (principal); R65.10 Systemic inflammatory response syndrome (SIRS) of non-infectious origin without acute organ dysfunction; I10 Essential (primary) hypertension; K21.9 Gastro-esophageal reflux disease without esophagitis; F10.20 Alcohol dependence, uncomplicated; F17.210 Nicotine dependence, cigarettes, uncomplicated; G89.29 Other chronic pain; M25.561 Pain in right knee; F12.90 Cannabis use, unspecified, uncomplicated; B19.20 Unspecified viral hepatitis C without hepatic coma; K86.1 Other chronic pancreatitis; K86.3 Pseudocyst of pancreas; Z79.899 Other long term (current) drug therapy; Z59.0 Homelessness; K57.30 Diverticulosis of large intestine without perforation or abscess without bleeding; Z82.49 Family history of ischemic heart disease and other diseases of the circulatory system; Z82.5 Family history of asthma and other chronic lower respiratory diseases
CPT/HCPCS: 74176; 76700; 82948; 83605; 83735; 93005; 96361; 96374; 96375; 99285; C9113; J1170; J1644; J1885; J2270; J2405; J3411; J3475; J3480; J3490; J7030; J7050

== ENCOUNTER 2018-05-27 03:28 | Inpatient (IN) | payer MEDICAID ==
[~2018-05-27] VITALS: Ht 167.6 cm; Wt 85.6 kg
[~2018-05-27 03:28] MED LIST changes: -AMIT10TA6 PO; +AMIT25TA9 PO; +BRIM155OS OS; +COSO10OS OS; +IBUP-1506 PO; +LISI-661 PO; +OMEP20 PO; -PANT40TA25 PO
[2018-05-27 04:33] LABS: BASOPHILS % (AUTO) 0.7 % (0.0-2.0); EOSINOPHILS % (AUTO) 1.2 % (1.0-6.0); HEMATOCRIT 37.1 % (41-53); HEMOGLOBIN 12.3 g/dL (13.5-17.5); LYMPHOCYTES % (AUTO) 29.3 % (22.0-44.0); MEAN CORPUSCULAR HEMOGLOBIN 29.6 pg (26.0-34.0); MEAN CORPUSCULAR HGB CONC 33.2 G/dL (31.0-37.0); MEAN CORPUSCULAR VOLUME 89 fL (80-100); MONOCYTES # (AUTO) 0.6 K/uL (0.1-1.0); MONOCYTES % (AUTO) 7.9 % (2.0-9.0); NEUTROPHILS # (AUTO) 4.2 K/uL (1.8-7.7); NEUTROPHILS % (AUTO) 60.9 % (40.0-70.0); PLATELET COUNT (AUTO) 280 K/uL (150-450); RED BLOOD CELL COUNT(AUTO) 4.16 MIL/uL (4.50-5.90); RED CELL DISTRIBUTION WIDTH 16.4 % (11.5-14.5)
[2018-05-27] MEDS ORDERED: MORPHINE SULFATE 10 MG/ML SYRINGE IVP ONE (04:45)
[2018-05-27] MEDS ORDERED: ONDANSETRON HCL 4 MG/2 ML VIAL IVP ONE (04:45)
[2018-05-27] MEDS ORDERED: SODIUM CHLORIDE 0.9% 1,000 ML IV ONE ×2 (04:45→10:00)
[2018-05-27 04:46] LABS: ANION GAP 11 mmol/L (8-16); CALCIUM, TOTAL 8.4 mg/dL (8.8-10.5); CARBON DIOXIDE 24 mmol/L (22-29); CHLORIDE 106 mmol/L (98-107); CREATININE 0.85 mg/dL (0.60-1.30); GLOMERULAR FILTR. RATE CALC > 60 mL/min (>60); GLUCOSE,RANDOM 143 mg/dL (70-110); POTASSIUM 3.7 mmol/L (3.5-5.1); SODIUM SERUM 141 mmol/L (136-145); UREA NITROGEN, BLOOD 5 mg/dL (7-18)
[2018-05-27 04:52] LABS: ALANINE AMINOTRANSFERASE 37 U/L (12-78); ALBUMIN 3.1 g/dL (3.4-5.0); ALKALINE PHOSPHATASE 212 U/L (46-116); ASPARTATE AMINOTRANSFERASE 67 U/L (15-37); BILIRUBIN,TOTAL 0.3 mg/dL (0.1-1.0); LIPASE 1342 U/L (73-393); TOTAL PROTEIN, SERUM 7.5 g/dL (6.4-8.2)
[2018-05-27] MEDS ORDERED: MORPHINE SULFATE 4 MG/ML SYRINGE IVP ONE (05:00)
[2018-05-27] MEDS ORDERED: MORPHINE SULFATE 2 MG/ML SYRINGE IVP ONE ×2 (06:45→10:00)
[2018-05-27 07:08] LABS: APPEARANCE,URINE CLEAR (CLEAR); BILIRUBIN,URINE NEGATIVE (NEGATIVE); GLUCOSE, URINE (UA) 100 mg/dL (NEGATIVE); KETONES,URINE NEGATIVE (NEGATIVE); LEUKOCYTE ESTERASE ,URINE NEGATIVE (NEGATIVE); NITRATE,URINE NEGATIVE (NEGATIVE); OCCULT BLOOD,URINE NEGATIVE (NEGATIVE); PROTEIN,URINE NEGATIVE (NEGATIVE); UROBILINOGEN,URINE 0.2 mg/dL (<=1.0)
[2018-05-27 07:23] LABS: BACTERIA,URINE None Seen /HPF (None Seen); RBC,URINE 0-2 /HPF (0-2); SQUAMOUS EPITHELIAL CELL,UR Few /LPF (None Seen); WBC,URINE None Seen /HPF (0-5)
[2018-05-27] MEDS ORDERED: LISINOPRIL 10 MG TABLET PO ONE (10:00)
[2018-05-27 10:40] VITALS: BP 189/115
[2018-05-27] MEDS ORDERED: ONDANSETRON HCL 4 MG/2 ML VIAL IVP PRN (13:45)
[2018-05-27] MEDS ORDERED: MAGNESIUM SULFATE 2 GM/WATER 50 ML IV PRN (13:45)
[2018-05-27] MEDS ORDERED: MAGNESIUM SULFATE 4 GM/WATER 100 ML IV PRN (13:45)
[2018-05-27] MEDS ORDERED: 0.9% SODIUM CHLORIDE 10 ML SYRINGE IVP PRN (13:45)
[2018-05-27] MEDS ORDERED: MAGNESIUM OXIDE 400 MG TABLET PO PRN (13:45)
[2018-05-27] MEDS ORDERED: POTASSIUM CHLORIDE 20 MEQ ER TABLET PO PRN (13:45)
[2018-05-27] MEDS ORDERED: POTASSIUM CHL 10 MEQ/WATER 50 ML IV PRN (13:45)
[2018-05-27] MEDS ORDERED: ZOLPIDEM TARTRATE 5 MG TABLET PO PRN (13:45)
[2018-05-27] MEDS: MORPHINE SULFATE 4 MG/ML SYRINGE IVP PRN ×3 (13:55→22:40)
[2018-05-27] MEDS: PANTOPRAZOLE SODIUM 40 MG/VIAL IVP SCH (15:37)
[2018-05-27] MEDS: OxyCODONE HCL/ACETAMINOPHEN 5-325 MG TABLET PO PRN ×2 (15:38→20:43)
[2018-05-27] MEDS: MAGNESIUM SULFATE 2 GM, MVI, ADULT NO.1 WITH VIT K 10 ML, THIAMINE HCL 100 MG, FOLIC AC... IV SCH ×5 (15:38)
[2018-05-27] MEDS: ChlordiazePOXIDE HCL 10 MG CAPSULE PO SCH ×2 (15:39→20:41)
[2018-05-27] MEDS: HEPARIN SODIUM,PORCINE 5,000 UNITS/ML VIAL SQ SCH (15:39)
[2018-05-27 16:05] VITALS: BP 156/98
[2018-05-27 20:00] VITALS: BP 133/84
[2018-05-27] MEDS: AMITRIPTYLINE HCL 25 MG TABLET PO SCH (20:41)
[2018-05-27 23:51] VITALS: BP 106/69
[2018-05-28] MEDS: HEPARIN SODIUM,PORCINE 5,000 UNITS/ML VIAL SQ SCH ×3 (00:35→17:11)
[2018-05-28] MEDS: MORPHINE SULFATE 4 MG/ML SYRINGE IVP PRN ×3 (03:50→14:47)
[2018-05-28 04:24] VITALS: BP 116/84
[2018-05-28 06:44] LABS: BASOPHILS % (AUTO) 0.8 % (0.0-2.0); EOSINOPHILS % (AUTO) 3.3 % (1.0-6.0); HEMATOCRIT 30.2 % (41-53); HEMOGLOBIN 10.1 g/dL (13.5-17.5); LYMPHOCYTES # (AUTO) 2.2 K/uL (1.0-4.8); LYMPHOCYTES % (AUTO) 37.6 % (22.0-44.0); MEAN CORPUSCULAR HEMOGLOBIN 30.1 pg (26.0-34.0); MEAN CORPUSCULAR HGB CONC 33.4 G/dL (31.0-37.0); MEAN CORPUSCULAR VOLUME 90 fL (80-100); MONOCYTES # (AUTO) 0.5 K/uL (0.1-1.0); NEUTROPHILS % (AUTO) 49.3 % (40.0-70.0); PLATELET COUNT (AUTO) 213 K/uL (150-450); RED BLOOD CELL COUNT(AUTO) 3.36 MIL/uL (4.50-5.90); RED CELL DISTRIBUTION WIDTH 16.5 % (11.5-14.5)
[2018-05-28 07:03] LABS: ANION GAP 7 mmol/L (8-16); CARBON DIOXIDE 27 mmol/L (22-29); CHLORIDE 105 mmol/L (98-107); CREATININE 0.69 mg/dL (0.60-1.30); GLOMERULAR FILTR. RATE CALC > 60 mL/min (>60); GLUCOSE,RANDOM 108 mg/dL (70-110); SODIUM SERUM 139 mmol/L (136-145); UREA NITROGEN, BLOOD 8 mg/dL (7-18)
[2018-05-28 07:52] VITALS: BP 131/88
[2018-05-28] MEDS: PANTOPRAZOLE SODIUM 40 MG/VIAL IVP SCH (08:26)
[2018-05-28] MEDS: MAGNESIUM SULFATE 2 GM, MVI, ADULT NO.1 WITH VIT K 10 ML, THIAMINE HCL 100 MG, FOLIC AC... IV SCH ×5 (08:26)
[2018-05-28] MEDS: LISINOPRIL 10 MG TABLET PO SCH (08:26)
[2018-05-28] MEDS: ChlordiazePOXIDE HCL 10 MG CAPSULE PO SCH ×3 (08:27→20:46)
[2018-05-28] MEDS ORDERED: OMEPRAZOLE 20 MG CAPSULE PO SCH (09:00)
[2018-05-28 11:40] VITALS: BP 148/96
[2018-05-28] MEDS: OxyCODONE HCL/ACETAMINOPHEN 5-325 MG TABLET PO PRN ×2 (11:41→20:48)
[2018-05-28 15:54] VITALS: BP 134/93
[2018-05-28 20:19] VITALS: BP 159/93
[2018-05-28] MEDS: AMITRIPTYLINE HCL 25 MG TABLET PO SCH (20:46)
[2018-05-28 23:59] VITALS: BP 127/86
[2018-05-29] MEDS: OxyCODONE HCL/ACETAMINOPHEN 5-325 MG TABLET PO PRN ×5 (01:12→20:07)
[2018-05-29] MEDS: HEPARIN SODIUM,PORCINE 5,000 UNITS/ML VIAL SQ SCH ×4 (01:15→23:57)
[2018-05-29 04:10] VITALS: BP 135/92
[2018-05-29 08:06] VITALS: BP 132/87
[2018-05-29] MEDS: PANTOPRAZOLE SODIUM 40 MG/VIAL IVP SCH (08:40)
[2018-05-29] MEDS: ChlordiazePOXIDE HCL 10 MG CAPSULE PO SCH ×3 (08:40→20:07)
[2018-05-29] MEDS: LISINOPRIL 10 MG TABLET PO SCH (08:43)
[2018-05-29 11:37] VITALS: BP 138/87
[2018-05-29 15:59] VITALS: BP 137/92
[2018-05-29] MEDS: AMITRIPTYLINE HCL 25 MG TABLET PO SCH (20:07)
[2018-05-29 20:15] VITALS: BP 135/86
[2018-05-29 23:24] VITALS: BP 132/86
[2018-05-30] MEDS: OxyCODONE HCL/ACETAMINOPHEN 5-325 MG TABLET PO PRN ×3 (00:01→14:01)
[2018-05-30 04:23] VITALS: BP 134/89
[2018-05-30 06:36] LABS: BASOPHILS % (AUTO) 0.6 % (0.0-2.0); EOSINOPHILS % (AUTO) 3.1 % (1.0-6.0); HEMATOCRIT 32.3 % (41-53); HEMOGLOBIN 10.7 g/dL (13.5-17.5); LYMPHOCYTES # (AUTO) 2.6 K/uL (1.0-4.8); LYMPHOCYTES % (AUTO) 40.7 % (22.0-44.0); MEAN CORPUSCULAR HEMOGLOBIN 29.9 pg (26.0-34.0); MEAN CORPUSCULAR HGB CONC 33.2 G/dL (31.0-37.0); MEAN CORPUSCULAR VOLUME 90 fL (80-100); MONOCYTES # (AUTO) 0.4 K/uL (0.1-1.0); MONOCYTES % (AUTO) 5.9 % (2.0-9.0); NEUTROPHILS # (AUTO) 3.1 K/uL (1.8-7.7); NEUTROPHILS % (AUTO) 49.7 % (40.0-70.0); PLATELET COUNT (AUTO) 214 K/uL (150-450); RED BLOOD CELL COUNT(AUTO) 3.59 MIL/uL (4.50-5.90); RED CELL DISTRIBUTION WIDTH 16.4 % (11.5-14.5)
[2018-05-30 06:58] LABS: ANION GAP 9 mmol/L (8-16); CALCIUM, TOTAL 8.7 mg/dL (8.8-10.5); CARBON DIOXIDE 25 mmol/L (22-29); CHLORIDE 103 mmol/L (98-107); CREATININE 0.87 mg/dL (0.60-1.30); GLOMERULAR FILTR. RATE CALC > 60 mL/min (>60); GLUCOSE,RANDOM 110 mg/dL (70-110); POTASSIUM 4.1 mmol/L (3.5-5.1); SODIUM SERUM 137 mmol/L (136-145); UREA NITROGEN, BLOOD 8 mg/dL (7-18)
[2018-05-30 08:06] VITALS: BP 165/98
[2018-05-30] MEDS: PANTOPRAZOLE SODIUM 40 MG/VIAL IVP SCH (08:20)
[2018-05-30] MEDS: ChlordiazePOXIDE HCL 10 MG CAPSULE PO SCH (08:20)
[2018-05-30] MEDS: HEPARIN SODIUM,PORCINE 5,000 UNITS/ML VIAL SQ SCH (08:20)
[2018-05-30] MEDS: LISINOPRIL 10 MG TABLET PO SCH (08:21)
[2018-05-30 13:13] VITALS: BP 120/67
== END 2018-05-30 15:15 | disposition home or self-care (01) | DRG 282 ==
LOC: EMS 03:28 → 6N 09:51
PROVIDERS: ADMIT Internal Medicine; ATTEND Internal Medicine
PROC: 05HY33Z Insertion of Infusion Device into Upper Vein, Percutaneous Approach (ICD-10-PCS; principal; 2018-05-28)
PROC: B54MZZA Ultrasonography of Right Upper Extremity Veins, Guidance (ICD-10-PCS; 2018-05-28)
DX: K85.90 Acute pancreatitis without necrosis or infection, unspecified (principal); B19.20 Unspecified viral hepatitis C without hepatic coma; F10.20 Alcohol dependence, uncomplicated; B86 Scabies; F12.90 Cannabis use, unspecified, uncomplicated; K86.3 Pseudocyst of pancreas; F17.210 Nicotine dependence, cigarettes, uncomplicated; K21.9 Gastro-esophageal reflux disease without esophagitis; G89.29 Other chronic pain; M25.561 Pain in right knee; Z82.49 Family history of ischemic heart disease and other diseases of the circulatory system; Z83.6 Family history of other diseases of the respiratory system; Z59.0 Homelessness
CPT/HCPCS: 36245; 74022; 76700; 76937; 83735; 93005; 96374; 96375; 96376; 99285; 99406; C9113; G0480; J1644; J2270; J2405; J3411; J3475; J3490; J7030

== ENCOUNTER 2018-05-30 15:15 | Inpatient (IN) | payer MEDICAID ==
[~2018-05-30] VITALS: Ht 167.6 cm; Wt 80.6 kg
[~2018-05-30 15:15] MED LIST changes: -BRIM155OS OS; -COSO10OS OS; -IBUP-1506 PO
[2018-05-30] MEDS ORDERED: ONDANSETRON HCL 4 MG/2 ML VIAL IVP ONE (15:45)
[2018-05-30] MEDS ORDERED: MORPHINE SULFATE 4 MG/ML SYRINGE IVP ONE ×2 (17:00→18:00)
[2018-05-30 17:21] LABS: BASOPHILS % (AUTO) 0.4 % (0.0-2.0); EOSINOPHILS % (AUTO) 0.6 % (1.0-6.0); HEMATOCRIT 34.2 % (41-53); HEMOGLOBIN 11.2 g/dL (13.5-17.5); LYMPHOCYTES # (AUTO) 1.7 K/uL (1.0-4.8); MEAN CORPUSCULAR HEMOGLOBIN 29.6 pg (26.0-34.0); MEAN CORPUSCULAR HGB CONC 32.8 G/dL (31.0-37.0); MEAN CORPUSCULAR VOLUME 90 fL (80-100); MONOCYTES # (AUTO) 0.6 K/uL (0.1-1.0); MONOCYTES % (AUTO) 4.8 % (2.0-9.0); NEUTROPHILS # (AUTO) 9.1 K/uL (1.8-7.7); NEUTROPHILS % (AUTO) 79.2 % (40.0-70.0); PLATELET COUNT (AUTO) 200 K/uL (150-450); RED CELL DISTRIBUTION WIDTH 16.6 % (11.5-14.5)
[2018-05-30] MEDS ORDERED: HydrALAZINE HCL 20 MG/ML VIAL IVP ONE (17:30)
[2018-05-30 17:32] LABS: ANION GAP 9 mmol/L (8-16); CALCIUM, TOTAL 9.1 mg/dL (8.8-10.5); CARBON DIOXIDE 27 mmol/L (22-29); CHLORIDE 103 mmol/L (98-107); CREATININE 0.93 mg/dL (0.60-1.30); GLOMERULAR FILTR. RATE CALC > 60 mL/min (>60); GLUCOSE,RANDOM 144 mg/dL (70-110); SODIUM SERUM 139 mmol/L (136-145); UREA NITROGEN, BLOOD 9 mg/dL (7-18)
[2018-05-30 17:36] LABS: ALANINE AMINOTRANSFERASE 79 U/L (12-78); ALBUMIN 3.1 g/dL (3.4-5.0); ALKALINE PHOSPHATASE 537 U/L (46-116); ASPARTATE AMINOTRANSFERASE 144 U/L (15-37); BILIRUBIN,TOTAL 0.4 mg/dL (0.1-1.0); CREATINE KINASE, TOTAL 47 U/L (39-308); LIPASE 605 U/L (73-393); TOTAL PROTEIN, SERUM 7.6 g/dL (6.4-8.2)
[2018-05-30 17:42] LABS: B-TYPE NATRIURETIC PEPTIDE 349 pg/mL (0-100)
[2018-05-30 17:44] LABS: APPEARANCE,URINE CLEAR (CLEAR); BILIRUBIN,URINE NEGATIVE (NEGATIVE); GLUCOSE, URINE (UA) NEGATIVE (NEGATIVE); KETONES,URINE NEGATIVE (NEGATIVE); LEUKOCYTE ESTERASE ,URINE NEGATIVE (NEGATIVE); NITRATE,URINE NEGATIVE (NEGATIVE); OCCULT BLOOD,URINE NEGATIVE (NEGATIVE); PROTEIN,URINE NEGATIVE (NEGATIVE); UROBILINOGEN,URINE 0.2 mg/dL (<=1.0)
[2018-05-30 17:48] LABS: AMPHET/METH SCREEN,URINE NEGATIVE (NEGATIVE); BARBITURATE SCREEN, URINE NEGATIVE (NEGATIVE); BENZODIAZEPINES SCREEN,URINE POSITIVE (NEGATIVE); CANNABINOID SCREEN,URINE NEGATIVE (NEGATIVE); COCAINE SCREEN,URINE NEGATIVE (NEGATIVE); METHADONE SCREEN, URINE NEGATIVE (NEGATIVE); OPIATE SCREEN,URINE POSITIVE (NEGATIVE); PHENCYCLIDINE SCREEN,URINE NEGATIVE (NEGATIVE)
[2018-05-30] MEDS ORDERED: NITROGLYCERIN 2% (1 GM=INCH) PACKET TP ONE (18:00)
[2018-05-30] MEDS ORDERED: ONDANSETRON HCL 4 MG/2 ML VIAL IVP PRN ×2 (18:00→22:30)
[2018-05-30] MEDS ORDERED: ACETAMINOPHEN 325 MG TABLET PO PRN (18:00)
[2018-05-30] MEDS ORDERED: 0.9% SODIUM CHLORIDE 10 ML SYRINGE IVP PRN ×2 (18:00→21:30)
[2018-05-30] MEDS ORDERED: HydrALAZINE HCL 20 MG/ML VIAL IVP PRN (18:30)
[2018-05-30] MEDS ORDERED: ONDANSETRON HCL 4 MG/2 ML VIAL IM PRN (18:30)
[2018-05-30] MEDS: MORPHINE SULFATE 4 MG/ML SYRINGE IVP PRN ×2 (18:42→22:44)
[2018-05-30] MEDS: SODIUM CHLORIDE 0.9% 1,000 ML IV SCH (18:45)
[2018-05-30 18:49] VITALS: BP 158/104
[2018-05-30 19:21] VITALS: BP 138/86
[2018-05-30 22:43] VITALS: BP 119/77
[2018-05-31] VITALS (9 sets, daily range): BP systolic 106–147; BP diastolic 64–91
[2018-05-31] MEDS: HEPARIN SODIUM,PORCINE 5,000 UNITS/ML VIAL SQ SCH ×4 (00:08→23:52)
[2018-05-31] MEDS: MORPHINE SULFATE 4 MG/ML SYRINGE IVP PRN ×6 (02:48→23:52)
[2018-05-31] MEDS: ONDANSETRON HCL 4 MG/2 ML VIAL IVP PRN ×3 (04:28→22:39)
[2018-05-31] MEDS: SODIUM CHLORIDE 0.9% 1,000 ML IV SCH ×2 (04:30→15:13)
[2018-05-31 06:26] LABS: BASOPHILS % (AUTO) 0.4 % (0.0-2.0); EOSINOPHILS % (AUTO) 1.6 % (1.0-6.0); HEMOGLOBIN 10.6 g/dL (13.5-17.5); LYMPHOCYTES # (AUTO) 2.2 K/uL (1.0-4.8); LYMPHOCYTES % (AUTO) 30.9 % (22.0-44.0); MEAN CORPUSCULAR HEMOGLOBIN 30.1 pg (26.0-34.0); MEAN CORPUSCULAR HGB CONC 33.3 G/dL (31.0-37.0); MEAN CORPUSCULAR VOLUME 91 fL (80-100); MONOCYTES # (AUTO) 0.5 K/uL (0.1-1.0); NEUTROPHILS # (AUTO) 4.3 K/uL (1.8-7.7); NEUTROPHILS % (AUTO) 60.1 % (40.0-70.0); PLATELET COUNT (AUTO) 198 K/uL (150-450); RED BLOOD CELL COUNT(AUTO) 3.53 MIL/uL (4.50-5.90); RED CELL DISTRIBUTION WIDTH 16.6 % (11.5-14.5)
[2018-05-31 06:58] LABS: AMYLASE 44 U/L (25-115); ANION GAP 5 mmol/L (8-16); CALCIUM, TOTAL 8.4 mg/dL (8.8-10.5); CARBON DIOXIDE 27 mmol/L (22-29); CHLORIDE 106 mmol/L (98-107); CREATININE 0.82 mg/dL (0.60-1.30); GLOMERULAR FILTR. RATE CALC > 60 mL/min (>60); GLUCOSE,RANDOM 116 mg/dL (70-110); SODIUM SERUM 138 mmol/L (136-145); UREA NITROGEN, BLOOD 8 mg/dL (7-18)
[2018-05-31] MEDS: PANTOPRAZOLE SODIUM 40 MG/VIAL IVP SCH (08:28)
[2018-05-31] MEDS ORDERED: MAGNESIUM SULFATE 4 GM/WATER 100 ML IV PRN (11:45)
[2018-05-31] MEDS ORDERED: POTASSIUM CHL 10 MEQ/WATER 50 ML IV PRN (11:45)
[2018-05-31] MEDS ORDERED: POTASSIUM CHLORIDE 20 MEQ ER TABLET PO PRN (11:45)
[2018-05-31] MEDS ORDERED: MAGNESIUM SULFATE 2 GM/WATER 50 ML IV PRN (11:45)
[2018-05-31 12:07] LABS: ALBUMIN 2.8 g/dL (3.4-5.0)
[2018-06-01] MEDS: SODIUM CHLORIDE 0.9% 1,000 ML IV SCH ×3 (01:16→21:22)
[2018-06-01 03:39] VITALS: BP 150/76
[2018-06-01] MEDS: MORPHINE SULFATE 4 MG/ML SYRINGE IVP PRN ×5 (04:00→21:22)
[2018-06-01] MEDS: ONDANSETRON HCL 4 MG/2 ML VIAL IVP PRN ×3 (06:22→21:25)
[2018-06-01 07:47] VITALS: BP 132/79
[2018-06-01] MEDS: HEPARIN SODIUM,PORCINE 5,000 UNITS/ML VIAL SQ SCH ×2 (08:20→16:00)
[2018-06-01] MEDS: PANTOPRAZOLE SODIUM 40 MG/VIAL IVP SCH (08:20)
[2018-06-01] MEDS: MAGNESIUM OXIDE 400 MG TABLET PO PRN ×3 (08:30→16:50)
[2018-06-01 11:40] VITALS: BP 152/94
[2018-06-01 16:46] VITALS: BP 147/85
[2018-06-01 20:36] VITALS: BP 166/95
[2018-06-01] MEDS: ZOLPIDEM TARTRATE 5 MG TABLET PO PRN (21:29)
[2018-06-02] VITALS (7 sets, daily range): BP systolic 112–159; BP diastolic 63–95
[2018-06-02] MEDS: MORPHINE SULFATE 4 MG/ML SYRINGE IVP PRN ×4 (01:45→20:32)
[2018-06-02] MEDS: SODIUM CHLORIDE 0.9% 1,000 ML IV SCH ×2 (05:49→15:44)
[2018-06-02] MEDS: PANTOPRAZOLE SODIUM 40 MG/VIAL IVP SCH (07:53)
[2018-06-02] MEDS: HEPARIN SODIUM,PORCINE 5,000 UNITS/ML VIAL SQ SCH ×4 (07:53→23:24)
[2018-06-02 09:14] LABS: ANION GAP 13 mmol/L (8-16); CALCIUM, TOTAL 8.3 mg/dL (8.8-10.5); CARBON DIOXIDE 20 mmol/L (22-29); CHLORIDE 103 mmol/L (98-107); GLOMERULAR FILTR. RATE CALC > 60 mL/min (>60); GLUCOSE,RANDOM 100 mg/dL (70-110); POTASSIUM 4.6 mmol/L (3.5-5.1); SODIUM SERUM 136 mmol/L (136-145); UREA NITROGEN, BLOOD 7 mg/dL (7-18)
[2018-06-02 09:35] LABS: BASOPHILS % (AUTO) 1.2 % (0.0-2.0); EOSINOPHILS % (AUTO) 1.3 % (1.0-6.0); HEMATOCRIT 30.3 % (41-53); HEMOGLOBIN 10.2 g/dL (13.5-17.5); LYMPHOCYTES # (AUTO) 3.1 K/uL (1.0-4.8); LYMPHOCYTES % (AUTO) 33.4 % (22.0-44.0); MEAN CORPUSCULAR HEMOGLOBIN 30.4 pg (26.0-34.0); MEAN CORPUSCULAR HGB CONC 33.7 G/dL (31.0-37.0); MEAN CORPUSCULAR VOLUME 90 fL (80-100); MONOCYTES # (AUTO) 0.8 K/uL (0.1-1.0); MONOCYTES % (AUTO) 8.9 % (2.0-9.0); NEUTROPHILS # (AUTO) 5.1 K/uL (1.8-7.7); NEUTROPHILS % (AUTO) 55.2 % (40.0-70.0); PLATELET COUNT (AUTO) 199 K/uL (150-450); RED BLOOD CELL COUNT(AUTO) 3.36 MIL/uL (4.50-5.90); RED CELL DISTRIBUTION WIDTH 16.4 % (11.5-14.5)
[2018-06-02] MEDS: MAGNESIUM OXIDE 400 MG TABLET PO PRN ×3 (09:54→20:31)
[2018-06-02] MEDS ORDERED: HYDROCODONE/ACETAMINOPHEN 5-325 MG TABLET PO PRN (14:30)
[2018-06-02] MEDS: ZOLPIDEM TARTRATE 5 MG TABLET PO PRN (20:31)
[2018-06-03] VITALS: BP 134/80
[2018-06-03] MEDS: MORPHINE SULFATE 4 MG/ML SYRINGE IVP PRN ×3 (01:00→13:10)
[2018-06-03 04:15] VITALS: BP 132/78
[2018-06-03 05:57] LABS: BASOPHILS % (AUTO) 0.6 % (0.0-2.0); EOSINOPHILS % (AUTO) 1.8 % (1.0-6.0); HEMATOCRIT 33.3 % (41-53); HEMOGLOBIN 11.2 g/dL (13.5-17.5); LYMPHOCYTES # (AUTO) 3.4 K/uL (1.0-4.8); MEAN CORPUSCULAR HGB CONC 33.7 G/dL (31.0-37.0); MEAN CORPUSCULAR VOLUME 89 fL (80-100); MONOCYTES # (AUTO) 0.8 K/uL (0.1-1.0); MONOCYTES % (AUTO) 9.9 % (2.0-9.0); NEUTROPHILS # (AUTO) 3.7 K/uL (1.8-7.7); NEUTROPHILS % (AUTO) 45.7 % (40.0-70.0); PLATELET COUNT (AUTO) 242 K/uL (150-450); RED BLOOD CELL COUNT(AUTO) 3.73 MIL/uL (4.50-5.90); RED CELL DISTRIBUTION WIDTH 16.6 % (11.5-14.5)
[2018-06-03 06:10] LABS: ANION GAP 9 mmol/L (8-16); CALCIUM, TOTAL 8.9 mg/dL (8.8-10.5); CARBON DIOXIDE 26 mmol/L (22-29); CHLORIDE 102 mmol/L (98-107); CREATININE 0.87 mg/dL (0.60-1.30); GLOMERULAR FILTR. RATE CALC > 60 mL/min (>60); GLUCOSE,RANDOM 150 mg/dL (70-110); POTASSIUM 3.5 mmol/L (3.5-5.1); SODIUM SERUM 137 mmol/L (136-145); UREA NITROGEN, BLOOD 4 mg/dL (7-18)
[2018-06-03 08:00] VITALS: BP 141/92
[2018-06-03] MEDS: PANTOPRAZOLE SODIUM 40 MG/VIAL IVP SCH (08:05)
[2018-06-03] MEDS: HEPARIN SODIUM,PORCINE 5,000 UNITS/ML VIAL SQ SCH (08:06)
[2018-06-03] MEDS: MAGNESIUM OXIDE 400 MG TABLET PO PRN (08:06)
[2018-06-03] MEDS: SODIUM CHLORIDE 0.9% 1,000 ML IV SCH (10:03)
[2018-06-03 12:05] VITALS: BP 118/73
== END 2018-06-03 15:00 | disposition home or self-care (01) | DRG 282 ==
LOC: EMS 15:16 → 5S 18:05 → 6N 06-02 15:50
PROVIDERS: ADMIT Internal Medicine; ATTEND Internal Medicine
DX: K85.90 Acute pancreatitis without necrosis or infection, unspecified (principal); B19.20 Unspecified viral hepatitis C without hepatic coma; D64.9 Anemia, unspecified; B86 Scabies; F10.20 Alcohol dependence, uncomplicated; F17.200 Nicotine dependence, unspecified, uncomplicated; G89.4 Chronic pain syndrome; F17.210 Nicotine dependence, cigarettes, uncomplicated; K21.9 Gastro-esophageal reflux disease without esophagitis; I10 Essential (primary) hypertension; K86.3 Pseudocyst of pancreas; Z79.899 Other long term (current) drug therapy; Z82.49 Family history of ischemic heart disease and other diseases of the circulatory system; Z59.0 Homelessness
CPT/HCPCS: 83036; 83735; 87081; 93005; 96374; 96375; 96376; 99285; C9113; G0480; J0360; J1644; J2270; J2405; J3475; J7030